=== PATIENT | female | born 1980 | race Caucasian/White ===

== ENCOUNTER 2021-01-07 14:40 | Outpatient (REF) | payer BC, SELFPAY ==
[2021-01-13 13:31] LABS: HPV mRNA E6/E7 rflx Not Detected (Not Detected)
== END 2021-01-07 14:41 | disposition home or self-care (01) ==
LOC: HO.LAB 14:40
PROVIDERS: PCP Internal Medicine; Visit Provider Advanced Practice Midwife
DX: Z01.411 Encounter for gynecological examination (general) (routine) with abnormal findings (principal); Z11.51 Encounter for screening for human papillomavirus (HPV); T83.32XA Displacement of intrauterine contraceptive device, initial encounter; N88.9 Noninflammatory disorder of cervix uteri, unspecified
CPT/HCPCS: 36415; 87624; 88141; 88142

== ENCOUNTER 2021-01-14 15:56 | Outpatient (REF) | payer BC, SELFPAY ==
--- NOTE | ~2021-01-14 | US_ITS ---
EXAMINATION: US PELVIS ULTRASOUND CLINICAL INFORMATION: T83.32XA - Displacement of intrauterine contraceptive device, initial encounter. Age 40. Spotting a few weeks ago. COMPARISON: Ultrasound pelvis 08/14/2018 TECHNIQUE: Ultrasound of the pelvis is performed using both transabdominal and transvaginal transducers along with Doppler. Transvaginal imaging is performed due to inadequate visualization transabdominally. FINDINGS: Uterus: The uterus is anteverted and slightly retroflexed and measures 8.5 x 4.0 x 4.0 cm. Volume 71 mL. The there is an IUD in the uterine cavity in expected position. No endometrial thickening. Endometrial double wall thickness under 6 mm. No fluid in the uterine cavity. The uterus is smooth in contour and has normal myometrial echogenicity. No visible fibroid. Adnexa: Both ovaries are visualized. There is normal color flow to the adnexa. There is no ovarian torsion. There is no pelvic ascites or fluid collection. Right ovary measures 2.3 x 1.9 x 1.9 cm. There is postovulatory corpus luteum measuring 1.6 x 1.2 x 1.5 cm. Left ovary measures 3.7 x 1.6 x 2.7 cm. There is dominant follicle measuring 2.2 x 1.4 x 2.1 cm. US/US pelvic complete IMPRESSION: 1. Uterus: IUD in expected position. 2. Adnexa: Incidental dominant follicle on left 2.2 cm. No ascites.
--- NOTE | ~2021-01-14 | US_ITS ---
EXAMINATION: US PELVIS ULTRASOUND CLINICAL INFORMATION: T83.32XA - Displacement of intrauterine contraceptive device, initial encounter. Age 40. Spotting a few weeks ago. COMPARISON: Ultrasound pelvis 08/14/2018 TECHNIQUE: Ultrasound of the pelvis is performed using both transabdominal and transvaginal transducers along with Doppler. Transvaginal imaging is performed due to inadequate visualization transabdominally. FINDINGS: Uterus: The uterus is anteverted and slightly retroflexed and measures 8.5 x 4.0 x 4.0 cm. Volume 71 mL. The there is an IUD in the uterine cavity in expected position. No endometrial thickening. Endometrial double wall thickness under 6 mm. No fluid in the uterine cavity. The uterus is smooth in contour and has normal myometrial echogenicity. No visible fibroid. Adnexa: Both ovaries are visualized. There is normal color flow to the adnexa. There is no ovarian torsion. There is no pelvic ascites or fluid collection. Right ovary measures 2.3 x 1.9 x 1.9 cm. There is postovulatory corpus luteum measuring 1.6 x 1.2 x 1.5 cm. Left ovary measures 3.7 x 1.6 x 2.7 cm. There is dominant follicle measuring 2.2 x 1.4 x 2.1 cm. US/US transvaginal IMPRESSION: 1. Uterus: IUD in expected position. 2. Adnexa: Incidental dominant follicle on left 2.2 cm. No ascites.
== END 2021-01-14 15:57 | disposition home or self-care (01) ==
LOC: HO.US 15:56
PROVIDERS: PCP Internal Medicine; Visit Provider Advanced Practice Midwife
DX: T83.32XA Displacement of intrauterine contraceptive device, initial encounter (principal)
CPT/HCPCS: 76830; 76856

== ENCOUNTER → 2021-02-04 14:02 | Outpatient (BNVA) | payer BC, SELFPAY | PROVIDERS: PCP Internal Medicine; Visit Provider Obstetrics & Gynecology ==

== ENCOUNTER → 2021-12-14 09:00 | Outpatient (BNVA) | payer BC, SELFPAY | PROVIDERS: Visit Provider Obstetrics & Gynecology ==

== ENCOUNTER 2022-01-18 15:52 | Outpatient (REF) | payer OTHER, SELFPAY ==
--- NOTE | ~2022-01-18 | MM_ITS ---
EXAMINATION: MM SCREENING DIGITAL BREAST TOMOSYNTHESIS, BILATERAL CLINICAL INFORMATION: Screening. Asymptomatic. No prior mammography. Age 41. No known family history breast cancer. The lifetime risk of breast cancer based on the Tyrer-Cuzick Model is 10%. COMPARISON: None (current study represents initial baseline exam). TECHNIQUE: Digital breast tomosynthesis is performed in both the craniocaudal and mediolateral oblique views along with computer-aided detection (CAD). Synthesized 2D images are generated from the tomosynthesis. FINDINGS: The breasts are heterogeneously dense, which may obscure small masses (ACR BI-RADS breast composition Category c). There are no significant masses, abnormal calcifications, or other abnormalities. No architectural abnormality. The skin contours are smooth. MM/MM tomosynthesis screening BI IMPRESSION: No mammographic evidence of malignancy. ASSESSMENT: BI-RADS 1: Negative RECOMMENDATION: Routine annual mammography screening. This patient's information was entered into a reminder system with a target due date for their next mammogram.
== END 2022-01-18 15:53 | disposition home or self-care (01) ==
LOC: HO.MAMMO 15:52
PROVIDERS: PCP Internal Medicine; Visit Provider Obstetrics & Gynecology
DX: Z12.31 Encounter for screening mammogram for malignant neoplasm of breast (principal)
CPT/HCPCS: 77063; 77067

== ENCOUNTER 2022-02-08 14:55 | Outpatient (REF) | payer OTHER, SELFPAY ==
[2022-02-09 04:40] LABS: CT PCR NOT DETECTED (Not Detect.); NG PCR NOT DETECTED (Not Detect.)
== END 2022-02-08 14:56 | disposition home or self-care (01) ==
LOC: HO.LAB 14:55
PROVIDERS: PCP Internal Medicine; Visit Provider Obstetrics & Gynecology
DX: Z30.433 Encounter for removal and reinsertion of intrauterine contraceptive device (principal)
CPT/HCPCS: 58300; 58301; 87491; 87591

== ENCOUNTER 2022-06-08 08:21 | Outpatient (REF) | payer OTHER, SELFPAY ==
[2022-06-12 12:42] LABS: HPV mRNA E6/E7 rflx Not Detected (Not Detected)
== END 2022-06-08 08:22 | disposition home or self-care (01) ==
LOC: HO.LAB 08:21
PROVIDERS: Visit Provider Obstetrics & Gynecology
DX: Z01.419 Encounter for gynecological examination (general) (routine) without abnormal findings (principal); Z11.51 Encounter for screening for human papillomavirus (HPV)
CPT/HCPCS: 81025; 87624; 88142

== ENCOUNTER 2023-02-04 09:02 | Outpatient (REF) | payer OTHER, SELFPAY ==
--- NOTE | ~2023-02-04 | MM_ITS ---
EXAMINATION: MM SCREENING DIGITAL BREAST TOMOSYNTHESIS, BILATERAL CLINICAL INFORMATION: Screening. Asymptomatic. The lifetime risk of breast cancer based on the Tyrer-Cuzick Model is 11%. COMPARISON: Mammography: 01/18/2022 (baseline) TECHNIQUE: Digital breast tomosynthesis is performed in both the craniocaudal and mediolateral oblique views along with computer-aided detection (CAD). Synthesized 2D images are generated from the tomosynthesis. FINDINGS: The breasts are heterogeneously dense, which may obscure small masses (ACR BI-RADS breast composition Category c). There are no significant masses, abnormal calcifications, or other abnormalities. Parenchymal pattern is similar to prior baseline exam. There is no developing density or architectural abnormality. The axilla and skin contours are unremarkable. No significant changes. MM/MM tomosynthesis screening BI IMPRESSION: No significant changes from prior baseline exam. ASSESSMENT: BI-RADS 1: Negative RECOMMENDATION: Routine annual mammography screening. This patient's information was entered into a reminder system with a target due date for their next mammogram.
== END 2023-02-04 09:03 | disposition home or self-care (01) ==
LOC: HO.MAMMO 09:02
PROVIDERS: PCP Internal Medicine; Visit Provider Internal Medicine
DX: Z12.31 Encounter for screening mammogram for malignant neoplasm of breast (principal)
CPT/HCPCS: 77063; 77067

== ENCOUNTER 2023-07-26 09:42 | Outpatient (REF) | payer OTHER, SELFPAY ==
[2023-07-26 15:15] LABS: CT PCR NOT DETECTED (Not Detect.); NG PCR NOT DETECTED (Not Detect.)
== END 2023-07-26 09:43 | disposition home or self-care (01) ==
LOC: HO.LNP 09:42
PROVIDERS: Visit Provider Obstetrics & Gynecology
DX: Z20.2 Contact with and (suspected) exposure to infections with a predominantly sexual mode of transmission (principal)
CPT/HCPCS: 0353U

== ENCOUNTER 2023-07-26 09:42 | Outpatient (AMB) | payer OTHER, SELFPAY ==
[2023-07-26 09:47] VITALS: BP 122/72; BMI 25.4
--- NOTE | 2023-07-26 09:47 | A.OFFVIS_ITS ---
Intake Vital Signs 07/26/23 09:47 Height 5 ft 7 in Weight 162 lb BMI 25.4 BP 122/72 Intake Visit Reasons: COOK 3 PASTRY annual exam/DO NOT RS Hospice Care Transitions Coordinator Required: No Information Interpreted: non-clinical & clinical Entry Clerk: Entry Clerk Present (Marian) Allergies kiwi [Kiwi (Actinidia Chinensis)] Allergy (Unknown, Verified 07/26/23 09:50) UNKNOWN SEASONAL ALLERGIES Allergy (Mild, Uncoded 07/26/23 09:50) SNEEZE, RUNNY NOSE Is last menstrual period known: No (Mirena) Post menopausal: No HPI HPI Comments History of Present Illness Details Presenting for annual exam. Complaining of irregular menstrual cycles on Mirena IUD. Last Pap/HPV was negative 06/11 Last Mammogram was BI-RADS 1 in 02/10 [facility] Medical History Asthma CARLOS III (cervical intraepithelial neoplasia III) Migraine Obesity (BMI 30-39.9) Pure hypercholesterolemia Vitamin D deficiency Surgical History H/O LEEP History of tonsillectomy and adenoidectomy Family History Father Hypertension Asthma Mother Hypertension Maternal Grandmother No problems noted. 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 Cognitive needs: No Hearing needs: No Vision needs: No Female Reproductive History Menstrual Age of Menarche: 11 control method: progestin IUCD Total pregnancies: 4 Full term: 2 Number of Living Children: 2 Ab induced: 2 Date of last pap smear: 06/09/22 History of abnormal pap smear: Yes Date of Mammogram: 02/04/23 Review of Systems Const All systems reviewed & are unremarkable except as noted in HPI and below Card Reports as per HPI Resp Reports as per HPI GI Reports as per HPI and Reports no additional complaints Reports as per HPI Physical Exam Const General: cooperative, healthy appearing and comfortable Chest Chest palpation & inspection: normal inspection of the chest and normal palpation of entire chest wall Breast/axilla inspection: normal inspection of the breasts and normal inspection of the axillae Breast/axilla palpation: normal palpation of the breasts, normal palpation of the axillae and no axillary lymphadenopathy Resp Effort & Inspection: normal respiratory effort Auscultation: clear to auscultation bilaterally Percussion: percussion normal Cardio Palpation: normal PMI Rate: regular rate Rhythm: regular rhythm Heart sounds: no murmurs and no rubs Peripheral pulses: Peripheral pulses 2+ throughout GI Inspection: Yes normal to inspection Palpation (GI): Soft to palpation, nontender, no guarding, not rigid and No hepatosplenomegaly present Percussion: Yes normal to percussion Auscultation: normal bowel sounds Rectal Exam - Female: deferred General: Yes bladder normal to palpation External Female Exam: No lesion Speculum Exam - Vagina: normal appearance of the vagina, normal palpation, normal vaginal discharge and not erythematous Speculum Exam - Cervix: normal appearance of the cervix, normal palpation and Other cervical findings present (IUD thread in place) Bimanual exam- vagina & uterus: normal bimanual exam, normal palpation, uterine size normal, bladder normal to palpation, consistency normal and normal palpation Bimanual Exam- Adnexa, other: normal adnexae, no masses and no tenderness Assessment & Plan Assessment & Plan (1) Well woman exam: Code(s): Z01.419 - Encounter for gynecological examination (general) (routine) without abnormal findings Plan: Cotesting not indicated this year. Instruction given to the patient to schedule next screening Mammogram in 02/11. Counseled the patient about the recommended dietary allowance of 1000 mg of Calcium & 600 IU of vitamin D. The patient was instructed to perform monthly self-breast exams and to schedule an annual exam in a year; All questions answered and the patient verbalized understanding. Instructed the patient to schedule annual exam in a year (2) Abnormal uterine bleeding (AUB): Comment: On Mirena IUD Code(s): N93.9 - Abnormal uterine and vaginal bleeding, unspecified Plan: Co testing not indicated this year, GC and chlamydia taken CBC, TSH, HCG, and pelvic ultrasound ordered. Discussed with the patient the different causes of abnormal bleeding including thyroid disorders, uterine and ovarian pathology, endometrial hyperplasia, carcinoma and other potential causes. Discussed with the patient the work up including CBC (to r/o anemia), TSH, pelvic Ultrasound, endometrial biopsy to r/o endometrial pathology. All questions answered and the patient verbalized understanding. Instructed the patient to schedule an appointment for an endometrial biopsy in 2 weeks. Orders: Orders HCG Quantitative Today N93.9 - Abnormal uterine and vaginal bleeding, unspecified Prolactin Today N93.9 - Abnormal uterine and vaginal bleeding, unspecified TSH reflex Free T4 Today N93.9 - Abnormal uterine and vaginal bleeding, unspecified Complete Blood Count no Diff Today N93.9 - Abnormal uterine and vaginal bleeding, unspecified US pelvic and transvaginal Today N93.9 - Abnormal uterine and vaginal bleeding, unspecified Coding Level of Care Code Est Pt Prev Care 40-64y(42196) Diagnoses Well woman exam Z01.419 Abnormal uterine bleeding (AUB) N93.9
== END 2023-07-26 10:12 | disposition home or self-care (01) ==
PROVIDERS: Visit Provider Obstetrics & Gynecology
DX: Z01.419 Encounter for gynecological examination (general) (routine) without abnormal findings (principal); N93.9 Abnormal uterine and vaginal bleeding, unspecified
CPT/HCPCS: 99396

== ENCOUNTER 2023-08-23 11:36 | Outpatient (REF) | payer OTHER, SELFPAY ==
[2023-08-23 12:49] LABS: Hematocrit 42.6 % (37.0-47.0); Hemoglobin 14.4 g/dl (12.0-16.0); Mean Corpuscular HGB Conc 33.8 g/dl (31.0-35.0); Mean Corpuscular Hemoglobin 32.5 pg (27.0-33.0); Mean Corpuscular Volume 96.2 fL (80.0-98.0); Mean Platelet Volume 8.7 fL (9.4-12.3); Platelet Count 305 X10*3/uL (160-400); Red Blood Count 4.43 X10*6/uL (4.20-5.50); Red Cell Distribution Width 11.8 % (11.0-16.0); White Blood Count 6.1 X10*3/uL (4.8-10.8)
[2023-08-23 13:41] LABS: HCG Quantitative < 2 mIU/mL; TSH reflex Free T4 1.57 uIU/mL (0.32-4.0)
[2023-08-25 02:19] LABS: Prolactin 8.4 ng/mL
== END 2023-08-23 11:37 | disposition home or self-care (01) ==
LOC: HO.US 11:36
PROVIDERS: PCP Internal Medicine; Visit Provider Obstetrics & Gynecology
DX: N93.9 Abnormal uterine and vaginal bleeding, unspecified (principal)
CPT/HCPCS: 36415; 76830; 76856; 84146; 84443; 84702; 85027

== ENCOUNTER 2023-09-07 11:05 | Outpatient (REF) | payer OTHER, SELFPAY | END 2023-09-07 11:06 | disposition home or self-care (01) | LOC: HO.LNP 11:05 | PROVIDERS: PCP Internal Medicine; Visit Provider Obstetrics & Gynecology | DX: N93.9 Abnormal uterine and vaginal bleeding, unspecified (principal) | CPT/HCPCS: 58100; 81025; 88305 ==

== ENCOUNTER 2023-09-07 11:05 | Outpatient (AMB) | payer OTHER, SELFPAY ==
--- NOTE | 2023-09-07 11:10 | MHC.OFFVIS ---
Intake Vital Signs 09/07/23 11:17 Height 5 ft 7 in Weight 116 lb 13.52 oz BMI 18.3 BP 110/68 Intake Visit Reasons: EMB/Ultrasound follow up Boat Worker Required: No Information Interpreted: non-clinical & clinical Environmental Officer: Environmental Officer Present Accompanied by: Self / Same As Patient Allergies kiwi [Kiwi (Actinidia Chinensis)] Allergy (Unknown, Verified 09/07/23 11:17) UNKNOWN SEASONAL ALLERGIES Allergy (Mild, Uncoded 09/07/23 11:17) SNEEZE, RUNNY NOSE PFSH Medical History Asthma CARLOS III (cervical intraepithelial neoplasia III) Migraine Obesity (BMI 30-39.9) Pure hypercholesterolemia Vitamin D deficiency Surgical History H/O LEEP History of tonsillectomy and adenoidectomy Family History Father Hypertension Asthma Mother Hypertension Maternal Grandmother No problems noted. 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 hysteroscopy D&C) & the risks were discussed with the patient including but not limited: pain, uterine perforation, bleeding, infection, possible injury to bladder, bowel, ureter, possible need for blood transfusion with all its possible risks. The patient verbalized understanding all questions answered and signed consent. UPT done in the office was negative The patient was placed into the dorsal lithotomy position; a speculum was inserted in the vagina. Using aseptic technique for the procedure, the cervix was cleansed with Betadine. The anterior lip of the cervix was grasped with a single tooth tenaculum. The uterus was sounded to 7 cm with a 4 mm Pipelle was used. Tissues samples were obtained and placed in formalin, in a patient labeled container and sent to the pathology department. At the end of the procedure, there was minimal bleeding noted The patient tolerated the procedure well and was discharged in good condition with the following instructions: Nothing in the vagina until the bleeding stops. No sex until the bleeding stops, to call if any of the following occurs: fever (>100.4), flu-like symptoms, abdominal pain, heavy bleeding, four smelling vaginal discharge. The patient was instructed to schedule a Follow up appointment in 2 weeks to discuss pathology results of the biopsy and treatment options. This note was generated with a voice recognition program. Some errors may have been overlooked during the review of this note. Sometimes these errors may affect the content or meaning of a given sentence. [id number] Biopsy Results AMB Test Urine AMB Test Urine Negative Last Edit by Marian Garcia CMA on 09/07/23 11:19 Assessment & Plan Assessment & Plan (1) Abnormal uterine bleeding (AUB): Comment: On Mirena IUD Code(s): N93.9 - Abnormal uterine and vaginal bleeding, unspecified Orders: Orders AMB HCG Urine Test Today Z32.02 - Encounter for test, result negative AMB Endometrial Biopsy Today N93.9 - Abnormal uterine and vaginal bleeding, unspecified Coding Level of Care Code Procedure Only Diagnoses Abnormal uterine bleeding (AUB) N93.9 CPT Codes Endometrial Biopsy - CPT: 87057-[id number] Biopsy ([id number])
[2023-09-07 11:17] VITALS: BP 110/68; BMI 18.3
== END 2023-09-07 11:28 | disposition home or self-care (01) ==
LOC: HO.HWS 11:06
PROVIDERS: PCP Internal Medicine; Visit Provider Obstetrics & Gynecology
DX: N93.9 Abnormal uterine and vaginal bleeding, unspecified (principal); Z32.02 Encounter for pregnancy test, result negative
CPT/HCPCS: 58100

== ENCOUNTER 2023-11-03 09:18 | Outpatient (AMB) | payer OTHER, SELFPAY ==
--- NOTE | 2023-11-03 09:23 | MHC.PC.OV ---
Vital Signs 11/03/23 09:25 Height 5 ft 7 in Weight 165 lb 6 oz BMI 25.9 BP 120/70 Blood Pressure Location Lt brachial Position Sitting Pulse 70 Pulse Source Pulse Oximeter Pulse Oximetry (%) 98 Oxygen Delivery Method Room Air Intake Visit Reasons: Med review Intake Note: Patient is here to follow up on med review. Product Development Manager Required: No Buggy Ladle Tender: Not Required per policy Accompanied by: Self / Same As Patient Allergies kiwi [Kiwi (Actinidia Chinensis)] Allergy (Unknown, Verified 11/03/23 09:25) UNKNOWN SEASONAL ALLERGIES Allergy (Mild, Uncoded 11/03/23 09:25) SNEEZE, RUNNY NOSE Tobacco use date assessed: 11/03/23 Dental Screening Dental Screen Date: 11/03/23 Did you have a dental visit in the last 12 months?: No Did you have a dental problem in the last 6 months where you did not have access to dental care?: No Was dental information given to patient?: No HPI HPI Comments History of Present Illness Details 33-year-old female past medical history significant for asthma, migraines, vitamin-D deficiency, hypercholesteremia and obesity. Patient of Dr. Martinez last seen in June 2022, patient presents today for medication review. Patient requesting refill on her albuterol inhaler. Patient reports given the weather change and from going from hot to cold she does have to use her inhaler once a day and reports due to her forced hot air in her house that occasionally she is waking up at night to use at. Patient advised to use cool mist humidifier to add moisture to the air. Patient requesting prescription for Zyrtec, Rx sent to patient's pharmacy [facility] Medical History Asthma CARLOS III (cervical intraepithelial neoplasia III) Migraine Obesity (BMI 30-39.9) Pure hypercholesterolemia Vitamin D deficiency Surgical History H/O LEEP History of tonsillectomy and adenoidectomy Family History Father Hypertension Asthma Mother Hypertension Maternal Grandmother No problems noted. 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 1. Little interest or pleasure in doing things: not at all 2. Feeling down, depressed, or hopeless: not at all 3. Trouble falling or staying asleep, or sleeping too much: not at all 4. Feeling tired or having little energy: not at all 5. Poor appetite or overeating: not at all 6. Feeling bad about yourself - or that you are a failure or have let yourself or your family down: not at all 7. Trouble concentrating on things, such as reading the newspaper or watching television: not at all 8. Moving or speaking so slowly that other people could have noticed. Or the opposite - being so fidgety or restless that you have been moving around a lot more than usual: not at all 9. Thoughts that you would be better off or of hurting yourself in some way: not at all Total score: 0 Depression Screening Interpretation: Negative Depression Screening Done: Yes Source: Developed by Drs. Randolph Gamino, Lisy Banks, Kenny Palacio and colleagues, with an educational milady from [employer]. Thrive Questionnaire Date Thrive assessed: 11/03/23 I am a: Patient What is your living situation today?: I have a steady place to live Within the past 12 months, did the food you bought not last and you didn't have the money to get more?: Never true Within the past 12 months, did you worry whether your food would run out before you got money to buy more?: Never true Do you have trouble paying for medicines?: No Do you have trouble getting transportation to medical appointments?: No Do you have trouble paying your heating and electricity bill?: No Do you have trouble taking care of your child, family member or friend?: No Do you have trouble with day-to-day activities such as bathing, preparing meals, shopping, managing finances, etc.?: No Are you currently unemployed and looking for a job?: No Are you interested in more education?: No Currently or been in a relationship where the following occur: no concerns reported AUDIT C Alcohol Use Questionnaire (AUDIT-C) 1. How often do you have a drink containing alcohol?: Monthly or less 2. How many drinks containing alcohol do you have on a typical day when you are drinking?: 1 or 2 Total Score: 1 TURNER-7 AMB Questionnaire TURNER-7 Date TURNER - 7 assessed: 11/03/23 Feeling nervous, anxious, or on edge: 0 = Not at all Not being able to stop or control worryin = Not at all Worrying too much about different things: 0 = Not at all Trouble relaxin = Not at all Being so restless that it is hard to sit still: 0 = Not at all Becoming easily annoyed or irritable: 0 = Not at all Feeling afraid as if something awful might happen: 0 = Not at all Total TURNER-7 score (0-4 normal; 5-9 mild; 10-14 moderate; 15-21 severe): 0 Source: Developed by Drs. Randolph Gamino, Lisy Banks, Kenny Palacio and colleagues, with an educational milady from [employer]. Review of Systems Const Denies chills, Denies fatigue, Denies fever(s) and Denies poor appetite Eyes Denies no additional complaints ENT Reports Normal hearing present Card Denies chest pain, Denies syncope, Denies rapid heart rate and Denies dyspnea Resp Denies cough and Denies dyspnea GI Denies change in stool character, Denies constipation, Denies diarrhea, Denies nausea and Denies vomiting Denies urinary frequency, Denies dysuria and Denies urinary urgency Neuro Reports Normal hearing present, Denies confusion and Denies syncope Psych Denies confusion Endo Denies fatigue Physical exam (Primary Care) Vital Signs: Last Vital Signs Pulse 70 11/03/23 09:25 BP 120/70 11/03/23 09:25 Pulse Ox 98 11/03/23 09:25 Oxygen Delivery Method Room Air 11/03/23 09:25 BMI result Body Mass Index 25.9 Tobacco/Smoking Status: Tobacco use Status Tobacco use date assessed 11/03/23 11/03/23 09:29 Patient Tobacco Use Status Former Tobacco user 11/03/23 09:29 Tobacco use type Cigarette 11/03/23 09:29 e-Cigarette/Vaping Use Never Used 11/03/23 09:29 PHQ-9: PHQ-9 Score PHQ-9: Total score 0 11/03/23 09:32 Depression Screening Interpretation: Negative Thrive Assessment: Date of Thrive Assessment Date Thrive assessed 11/03/23 11/03/23 09:29 Currently or been in a relationship where the following occur: no concerns reported Const General: No confusion Orientation/consciousness: No confusion HENMT Head: Yes normocephalic and Yes atraumatic Eyes Conjunctivae: conjunctivae normal Chest Chest palpation & inspection: normal inspection of the chest Resp Effort & Inspection: normal respiratory effort Auscultation: clear to auscultation bilaterally, no crackles, no rhonchi and no wheezes Cardio Rate: regular rate Rhythm: regular rhythm Heart sounds: S1 normal heart sound present and S2 normal heart sound present GI Inspection: Yes normal to inspection Neuro General: No confusion Cranial nerves: Yes Normal hearing present Extrem General: No edema Assessment and Plan Assessment & Plan (1) Asthma: Code(s): J45.909 - Unspecified asthma, uncomplicated Plan: Albuterol inhaler refill sent. (2) Seasonal allergies: Code(s): J30.2 - Other seasonal allergic rhinitis Plan: Zyrtec sent to patient's pharmacy. Plan Follow-up in 3 months for complete physical exam. Medications: New cetirizine (Zyrtec) 10 mg PO DAILY 90 caps 0RF Refilled albuterol sulfate 90 mcg/actuation (ProAir HFA) 2 puffs inhalation Q6H PRN 18 grams 5RF shortness of breath or wheezing 30 days J45.909 - Unspecified asthma, uncomplicated Coding Level of Care Code Est Pt Level 3 (58152) Diagnoses Asthma J45.909 Seasonal allergies J30.2
[2023-11-03 09:25] VITALS: BP 120/70; PULSE 70; O2SAT 98; BMI 25.9
== END 2023-11-03 09:39 | disposition home or self-care (01) ==
PROVIDERS: PCP Internal Medicine; Visit Provider Nurse Practitioner Family
DX: J30.2 Other seasonal allergic rhinitis (principal)
CPT/HCPCS: 99213

== ENCOUNTER 2024-01-15 19:07 | Emergency (ER) | payer OTHER, SELFPAY ==
--- NOTE | ~2024-01-15 | US_ITS ---
EXAMINATION: US PELVIS with ovarian Doppler. CLINICAL INFORMATION: Pain. COMPARISON: CT from the same day. TECHNIQUE: Ultrasound of the pelvis is performed using both transabdominal and transvaginal transducers along with Doppler. Transvaginal imaging is performed due to inadequate visualization transabdominally. Color and spectral Doppler assessment of the bilateral ovaries was performed. FINDINGS: Uterus: The uterus is anteverted and measures 8.7 x 4.2 x 5.6 cm. Endometrial thickness is 0.5 cm, within normal limits. IUD is noted within the endometrial canal. The uterus is smooth in contour and has normal myometrial echogenicity. No visible fibroid. Nabothian cysts are seen at the cervix. Adnexa: Both ovaries are visualized. There is normal color flow to the adnexa. There is no evidence of ovarian torsion on spectral and color Doppler. Arterial and venous waveforms are noted. Right ovary measures 3.2 x 1.5 x 1.6 cm cm. No cysts or lesions. Left ovary measures 5.0 x 1.9 x 4.1 cm. There is an associated 3.2 x 1.9 x 3.7 cm simple left ovarian cyst, likely a follicular cyst. No suspicious features. Trace free fluid in the pelvis. US/US pelvic and transvaginal IMPRESSION: 1. No acute intrapelvic abnormalities. No evidence of ovarian torsion. 2. IUD in place. 3. A 3.7 cm simple left ovarian cyst, likely a follicular cyst. No recommended imaging follow-up.
--- NOTE | ~2024-01-15 | CT_ITS ---
EXAMINATION: CT ABDOMEN AND PELVIS WITH CONTRAST CLINICAL INFORMATION: Diffuse abdominal pain. COMPARISON: Ultrasound dated 01/14/2021 and 08/23/2023 TECHNIQUE: Multidetector volumetric images were obtained from the superior aspect of the liver through the pubic symphysis following administration 85 mL of Omnipaque 350 intravenous contrast. Sagittal and coronal reformatted images were obtained on the technologist's workstation. Oral contrast: No This CT examination was performed using dose optimization techniques as appropriate, variously including the following: *Automated exposure control *Adjustment of mA and/or kV according to patient size (this includes techniques or standardized protocols for targeted exams where dose is matched to indication/reason for exam; i.e. extremities or head) *Use of iterative reconstruction technique DLP: 539 mGy-cm FINDINGS: LUNG BASES: The visualized lung bases are unremarkable. LIVER, GALLBLADDER, AND BILIARY TREE: The liver is borderline enlarged, measuring 21 cm craniocaudal. The liver is normal in shape and attenuation. No suspicious hepatic lesion or biliary ductal dilatation is present. Small subcentimeter focus of hypoattenuation within hepatic segment 6 is too small to characterize. No recommend imaging follow-up. No suspicious hepatic lesions. The gallbladder is unremarkable with no evidence of radiopaque gallstones, gallbladder wall thickening, or obvious pericholecystic inflammatory changes. PANCREAS: Unremarkable. SPLEEN: Unremarkable. ADRENAL GLANDS: Unremarkable. KIDNEYS AND URETERS: The kidneys are normal in size, shape, and attenuation. No hydronephrosis, hydroureter, or calculi seen. No perinephric stranding. BLADDER: Unremarkable. GASTROINTESTINAL TRACT: Stomach, small bowel, and colon are normal in caliber without bowel wall thickening. No peritoneal free fluid or free air. Appendix is normal. ABDOMINAL WALL: No significant hernia is appreciated. LYMPH NODES: Normal. VASCULAR: Unremarkable. PELVIC VISCERA: IUD is appropriately situated in the retroverted uterus. Left ovarian cysts are again noted, better seen on prior ultrasound from August 2023, measuring up to 3.8 cm in greatest diameter in aggregate. The are almost certainly benign. No imaging follow-up. OSSEOUS STRUCTURES: Unremarkable. CT/CT abdomen pelvis w IV con IMPRESSION: 1. No acute intra-abdominal or intrapelvic abnormalities. 2. Borderline hepatomegaly. Fleischner guidelines were followed.
[2024-01-15 19:14] VITALS: BP 120/56; PULSE 97; RESP 16; TEMP 36.4; O2SAT 98; BMI 26.3
[2024-01-15 19:32] VITALS: BP 127/63; PULSE 94; RESP 18; TEMP 36.7; O2SAT 97
[2024-01-15] MEDS: 0.9 % Sodium Chloride 1,000 ML 999 ML IV (19:40)
[2024-01-15] MEDS: ondansetron HCL 4 MG/2 ML VIAL IVPUSH (19:43)
[2024-01-15] MEDS: Ketorolac Tromethamine 15 MG/ML VIAL IVPUSH ×2 (19:43→22:46)
--- NOTE | 2024-01-15 19:50 | PC.NURSE ---
IV # 20 L-AC placed, blood drawn and sent to lab. Pt reporting nausea and pain 10/10 to lower back and abdomen. Medications given as ordered, IV fluids running at this time. Plan of care ongoing.
[2024-01-15 19:51] LABS: Hematocrit 42.8 % (37.0-47.0); Hemoglobin 14.8 g/dl (12.0-16.0); Mean Corpuscular HGB Conc 34.6 g/dl (31.0-35.0); Mean Corpuscular Hemoglobin 31.9 pg (27.0-33.0); Mean Corpuscular Volume 92.2 fL (80.0-98.0); Mean Platelet Volume 8.5 fL (9.4-12.3); Platelet Count 286 X10*3/uL (160-400); Red Blood Count 4.64 X10*6/uL (4.20-5.50); Red Cell Distribution Width 11.9 % (11.0-16.0); White Blood Count 8.7 X10*3/uL (4.8-10.8)
--- NOTE | 2024-01-15 20:00 | ED.FEMALEGU ---
HPI - Female Genitourinary General Chief complaint: Urogenital-Female Stated complaint: abd/back pain sent from urgent care Time Seen by Provider: 01/15/24 19:24 Source: patient, RN notes reviewed and old records reviewed Mode of arrival: ambulatory Limitations: no limitations History of Present Illness HPI Narrative: 43-year-old female who denies any past medical history presents for evaluation abdominal pain and back pain. Patient reports he had crampy back pain and abdominal pain for about 1 week. Over the last 48 hours she has had more severe pain as well as subjective fevers. She went to urgent care and was told to come to the ER. She reports that they did a urine sample and a KUB which did not show any sign of obstruction. Patient denies any history abdominal surgeries. Patient endorses nausea with no vomiting Related Data Home Medications Medication Instructions Recorded Confirmed levonorgestrel 21 mcg/24 hours (8 intrauterine 02/04/21 07/20/22 yrs) 52 mg intrauterine device (Mirena) Previous Rx's Medication Instructions Recorded albuterol sulfate 90 mcg/actuation 2 puff inhalation Q6H PRN 11/03/23 aerosol inhaler (ProAir HFA) shortness of breath or wheezing 30 days #18 grams cetirizine 10 mg capsule (Zyrtec) 10 mg PO DAILY #90 caps 11/03/23 Allergies Allergy/AdvReac Type Severity Reaction Status Date / Time kiwi Allergy Unknown UNKNOWN Verified 11/03/23 09:25 [Kiwi (Actinidia Chinensis)] SEASONAL ALLERGIES Allergy Mild SNEEZE, Uncoded 11/03/23 09:25 RUNNY NOSE Review of Systems Constitutional: Constitutional: Denies body ache(s), Reports chills and Reports fever(s) ENT: Denies sore throat Cardiovascular: Cardiovascular: Denies chest pain and Denies dyspnea Respiratory: Respiratory: Denies cough and Denies dyspnea Gastrointestinal: Gastrointestinal: Reports abdominal pain, Reports nausea and Denies vomiting Genitourinary: Genitourinary: Denies pelvic pain Musculoskeletal: Musculoskeletal: Reports back pain Integumentary/Breasts: Skin/Breast: Denies rash PMFSH Past Medical History Medical History Asthma CARLOS III (cervical intraepithelial neoplasia III) Migraine Obesity (BMI 30-39.9) Pure hypercholesterolemia Vitamin D deficiency Surgical History H/O LEEP History of tonsillectomy and adenoidectomy Family History Family History Father Hypertension Asthma Mother Hypertension Maternal Grandmother No problems noted. 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 Cognitive needs: No Hearing needs: No Vision needs: Yes (glasses) Physical Exam Vital Signs: Vital Signs: Last Vital Signs Temp 99.6 F 01/15/24 23:55 Pulse 92 01/15/24 23:55 Resp 16 01/15/24 23:55 BP 115/61 01/15/24 23:55 Pulse Ox 94 01/15/24 23:55 O2 Del Method Room Air 01/15/24 23:55 BMI result Body Mass Index 26.3 Const: General: healthy appearing, comfortable, no acute distress, alert and awake Nutritional Appearance: well nourished Orientation/consciousness: patient oriented x3 HEENT: Head: Yes normocephalic and Yes atraumatic Eyes: Eyelids: Yes eyelids normal Conjunctivae: conjunctivae normal Sclerae: sclerae normal Corneas: corneas normal Pupils: Equal, round and reactive pupils present EOM: EOMs intact bilaterally Neck: Neck: Yes full ROM Resp: Effort & Inspection: normal respiratory effort, able to speak in complete sentences and not labored GI: Other: Diffuse abdominal tenderness, there appears to be more focal tenderness in the right lower quadrant with guarding. There is rebound tenderness as well Inspection: No distended Palpation (GI): Soft to palpation, not firm and not rigid Skin: General skin exam: elasticity normal Neuro: General: patient oriented x3 Cranial nerves: Yes Equal, round and reactive pupils present and Yes Bilaterally intact EOM present Cognition (Neuro): normal cognition Course Reevaluation(s) Reevaluation #1: Patient's CT scan shows no concerning findings. However she does have a bandemia with a left shift, unclear source. Plan for pelvic ultrasound and repeat labs. She has no reason to have bacteremia however blood cultures will be drawn to further rule out any further cause of her bandemia Time: 22:46 Reevaluation #2: Patient's ultrasound shows concern for ruptured ovarian cyst. UA does not appear indicative of urinary infection. The bandemia may have been reactive to the ruptured cyst. The patient is stable for discharge where her vital signs have remained stable throughout her stay. All of her workup was discussed with her Time: 00:07 Medications Administered Discontinued Medications Generic Name Dose Route Start Last Admin Trade Name Freq PRN Reason Stop Dose Admin Sodium Chloride 1,000 mls @ 999 mls/hr 01/15/24 19:30 01/15/24 20:41 Ns IV 01/15/24 20:30 Infused .Q1H1M BRENDAN Infusion Iohexol 100 ml 01/15/24 20:28 01/15/24 20:34 Iohexol 350 Mg/Ml 100 Ml Infus..Btl IV 01/15/24 20:29 85 ml ONCE ONE Administration Ketorolac Tromethamine 15 mg 01/15/24 19:30 01/15/24 19:43 Ketorolac Tromethamine 15 Mg/Ml Vial IVPUSH 01/15/24 19:31 15 mg ONCE ONE Administration Ketorolac Tromethamine 15 mg 01/15/24 22:42 01/15/24 22:46 Ketorolac Tromethamine 15 Mg/Ml Vial IVPUSH 01/15/24 22:43 15 mg ONCE ONE Administration Ondansetron HCl 4 mg 01/15/24 19:30 01/15/24 19:43 Ondansetron Hcl 4 Mg/2 Ml Vial IVPUSH 01/15/24 19:31 4 mg ONCE ONE Administration Medical Decision Making Medical Decision Making MDM Narrative: 43-year-old female presents for evaluation of severe lower abdominal pain. She was complaints of back pain. Given that she had dull, achy pain about a week Yo and worsening pain over the last 2 days, I have a high concern the patient has a ruptured appendicitis. Plan for labs, CT scan of the abdomen pelvis. Currently, the patient's vitals are within normal limits and she is stable Differential Diagnosis Differential Diagnoses: The differential diagnosis associated with the presentation includes Appendicitis Ruptured appendicitis Bowel obstruction Pancreatitis Cholecystitis colitis Bowel perforation Diverticulitis Lab Data MDM Lab Attestation statement: I reviewed the patient's lab results. No leukocytosis or anemia. The patient does have a significant left shift with 92% neutrophils and 5% bandemia. No significant chemistry abnormalities 01/15/24 23:48 01/15/24 19:39 Labs: Lab Results 01/15/24 01/15/24 01/15/24 Range/Units 19:39 22:22 23:48 WBC 8.7 7.2 (4.8-10.8) X10*3/uL RBC 4.64 4.20 (4.20-5.50) X10*6/uL Hgb 14.8 13.6 (12.0-16.0) g/dl Hct 42.8 39.0 (37.0-47.0) % MCV 92.2 92.9 (80.0-98.0) fL MCH 31.9 32.4 (27.0-33.0) pg MCHC 34.6 34.9 (31.0-35.0) g/dl RDW 11.9 11.9 (11.0-16.0) % Plt Count 286 250 (160-400) X10*3/uL MPV 8.5 L 8.3 L (9.4-12.3) fL Immature Gran % (Auto) Cancelled 0.3 Neut % (Auto) Cancelled 87.3 H Lymph % (Auto) Cancelled 5.3 L [place] % (Auto) Cancelled 4.6 Eos % (Auto) Cancelled 2.2 Baso % (Auto) Cancelled 0.3 Lymph # (Auto) Cancelled 0.4 L [place] # (Auto) Cancelled 0.3 Eos # (Auto) Cancelled 0.2 Baso # (Auto) Cancelled 0.0 Abs Immat Gran (auto) Cancelled 0.02 Absolute Neuts (auto) Cancelled 6.3 Absolute Nucleated RBC 0.000 0.000 (0.0-0.012) X10*3/uL Nucleated RBC % (auto) 0.0 0.0 (0.0-0.2) /100WBC Neutrophils % (Manual) 92 H (45-73) % Band Neutrophils % 5 (3-5) % Lymphocytes % (Manual) 1 L (20-40) % Monocytes % (Manual) 2 (2-11) % Abs Neuts (Manual) 8.4 H (2.0-8.3) X10*3/uL Lymphocytes # (Manual) 0.1 L (1.2-4.9) X10*3/uL Monocytes # (Manual) 0.2 (0.1-1.2) X10*3/uL Platelet Estimate NORMAL (NORMAL) Plt Morphology Comment NORMAL RBC Morphology NORMAL Smear Tech's Comments MANUAL DIFF Sodium 136 (135-145) mmol/L Potassium 3.7 (3.3-5.1) mmol/L Chloride 106 (96-108) mmol/L Carbon Dioxide 21 L (22-29) mmol/L Anion Gap 13 (12-20) BUN 11 (9-16) mg/dL Creatinine 0.81 (0.5-1.4) mg/dL Estim Creat Clear Calc 96.3 Estimated GFR > 60 Random Glucose 107 (60-115) mg/dL Calcium 8.6 (8.4-10.2) mg/dL Total Bilirubin 0.7 (0.0-1.0) mg/dL AST 19 (5-31) U/L ALT 17 (0-31) U/L Alkaline Phosphatase 49 (39-117) U/L Total Protein 6.9 (6.5-8.0) g/dL Albumin 4.4 (3.5-5.0) g/dL Beta HCG, Quant < 2 mIU/mL Urine Color Yellow Urine Appearance Clear Urine pH 5.0 (5.0-9.0) Ur Specific [place] >= 1.030 H (1.005-1.025) Urine Protein Negative (Neg-Trace) mg/dL Urine Glucose (UA) Negative (Negative) mg/dL Urine Ketones Negative (Negative) mg/dL Urine Blood Small (1+) H (Negative) Urine Nitrite Negative (Negative) Ur Leukocyte Esterase Trace H (Negative) Urine RBC 3-5 H (0-2) /HPF Urine WBC 6-10 H (0-5) /HPF Ur Squamous Epith Cells 3-5 (0-2) /HPF Urine Bacteria None Seen (None Seen) Hyaline Casts 0-2 (0-2) /LPF Influenza Type A (PCR) NEGATIVE (Negative) Influenza Type B (PCR) NEGATIVE (Negative) RSV RNA Qual (PCR) NEGATIVE (Negative) SARS-CoV-2 RNA (RT-PCR) NEGATIVE (Negative) Independent Interpretation I performed an independent interpretation of an: Ultrasound (Concern for left ovarian cyst with possible ovarian cyst rupture) Radiology Impression Discussion of test interpretation with radiology: I have reviewed the radiologist's reading. (CT scan without any concerning abnormalities to explain the patient's pain) Discharge Plan Discharge Clinical Impression: Abdominal pain, Ovarian cyst Patient Disposition: Home, Self-Care Instructions: Ovarian Cyst (ED), Abdominal Pain (ED) Additional Instructions: Your workup in the ER today was reassuring. Your CT scan did not show any concerning abnormalities. Your ultrasound showed concern for a ruptured left ovarian cyst which is likely the cause of your discomfort Follow-up with your primary doctor Return for new or worsening symptoms Prescriptions: No Action albuterol sulfate [ProAir HFA] 90 mcg/actuation HFA aerosol inhaler 2 puff inhalation Q6H PRN (Reason: shortness of breath or wheezing) 30 Days Qty: 18 5RF Zyrtec 10 mg capsule 10 mg PO DAILY Qty: 90 0RF Mirena 20 mcg/24 hours (7 yrs) 52 mg intrauterine device 1 device intrauterine ONCE Qty: 1 0RF Mirena 20 mcg/24 hours (6 yrs) 52 mg intrauterine device intrauterine Stand Alone Forms: Work/School Release
[2024-01-15 20:09] LABS: SLIDE REVIEW MANUAL DIFF
[2024-01-15 20:11] LABS: Alanine Aminotransferase 17 U/L (0-31); Albumin Level 4.4 g/dL (3.5-5.0); Alkaline Phosphatase 49 U/L (39-117); Anion Gap 13 (12-20); Aspartate Amino Transferase 19 U/L (5-31); Bilirubin Total 0.7 mg/dL (0.0-1.0); Blood Urea Nitrogen 11 mg/dL (9-16); Calcium 8.6 mg/dL (8.4-10.2); Carbon Dioxide 21 mmol/L (22-29); Chloride 106 mmol/L (96-108); Creatinine Clr Calc Pharmacy 96.3; Estimated Glomerular Filt Rate > 60; Glucose Random 107 mg/dL (60-115); Potassium 3.7 mmol/L (3.3-5.1); Sodium 136 mmol/L (135-145); Total Protein 6.9 g/dL (6.5-8.0)
[2024-01-15 20:12] LABS: Band Neutrophils Percent 5 % (3-5); Lymphocytes Absolute Manual 0.1 X10*3/uL (1.2-4.9); Lymphocytes Percent Manual 1 % (20-40); Monocytes Absolute Manual 0.2 X10*3/uL (0.1-1.2); Monocytes Percent Manual 2 % (2-11); Neutrophils Absolute Manual 8.4 X10*3/uL (2.0-8.3); Neutrophils Percent Manual 92 % (45-73)
[2024-01-15 20:14] LABS: HCG Quantitative < 2 mIU/mL; Platelet Estimate NORMAL (NORMAL); Platelet Morphology Comment NORMAL; RBC Morphology NORMAL
[2024-01-15 20:27] LABS: Influenza A PCR NEGATIVE (Negative); Influenza B PCR NEGATIVE (Negative); Resp Syncy Virus RNA Qual PCR NEGATIVE (Negative); SARS COV2 PCR INHOUSE NEGATIVE (Negative)
[2024-01-15] MEDS: iohexoL 350 MG/ML 100 ML INFUS..BTL IV (20:34)
[2024-01-15 22:32] LABS: Appearance Urine Clear; Color Urine Yellow; Glucose Urine UA Negative (Negative); Leukocyte Esterase Urine Trace (Negative); Nitrite Urine Negative (Negative); Specific Gravity - Urine >= 1.030 (1.005-1.025); UMIC TRIGGER UACC YES; Urine Blood Small (1+) (Negative); Urine Ketones Negative (Negative); Urine Protein Negative (Neg-Trace)
[2024-01-15 22:42] LABS: Bacteria Urine None Seen (None Seen); Hyaline Casts Urine 0-2 /LPF (0-2); UACC Culture Trigger YES
[2024-01-15 23:55] VITALS: BP 115/61; PULSE 92; RESP 16; TEMP 37.6; O2SAT 94
[2024-01-15 23:56] LABS: MANUAL DIFF FLAG NO
[2024-01-15 23:59] LABS: Basophils Percent Auto 0.3 % (0-2); Eosinophils Absolute Auto 0.2 X10*3/uL (0.0-0.4); Eosinophils Percent Auto 2.2 % (0-4); Hemoglobin 13.6 g/dl (12.0-16.0); Imm Gran Abs Auto 0.02 X10*3/uL (0.00-0.03); Imm Gran Pct Auto 0.3 % (0.0-0.4); Lymphocytes Absolute Auto 0.4 X10*3/uL (1.2-4.9); Lymphocytes Percent Auto 5.3 % (20-40); Mean Corpuscular HGB Conc 34.9 g/dl (31.0-35.0); Mean Corpuscular Hemoglobin 32.4 pg (27.0-33.0); Mean Corpuscular Volume 92.9 fL (80.0-98.0); Mean Platelet Volume 8.3 fL (9.4-12.3); Monocytes Absolute Auto 0.3 X10*3/uL (0.1-1.2); Monocytes Percent Auto 4.6 % (2-11); Neutrophils Absolute Auto 6.3 x10*3/uL (2.0-8.3); Neutrophils Percent Auto 87.3 % (45-73); Platelet Count 250 X10*3/uL (160-400); Red Cell Distribution Width 11.9 % (11.0-16.0); White Blood Count 7.2 X10*3/uL (4.8-10.8)
[2024-01-16 00:06] LABS: Lactic Acid 0.6 mmol/L (0.5-2.0)
== END 2024-01-16 00:43 | disposition home or self-care (01) ==
PROVIDERS: Physician Assistant; Emergency Provider Emergency Medicine; PCP Internal Medicine
DX: N83.202 Unspecified ovarian cyst, left side (principal); R10.2 Pelvic and perineal pain; Z11.52 Encounter for screening for COVID-19; Z20.822 Contact with and (suspected) exposure to COVID-19; Z79.899 Other long term (current) drug therapy
CPT/HCPCS: 0241U; 36415; 74177; 76830; 76856; 80053; 81001; 83605; 84702; 85007; 85025; 85027; 87040; 87086; 96361; 96374; 96375; 96376; 99284; J1885; J2405; Q9967

== ENCOUNTER 2024-02-14 12:32 | Outpatient (AMB) | payer OTHER, SELFPAY ==
--- NOTE | 2024-02-14 12:34 | MHC.PC.OV ---
Vital Signs 02/14/24 12:37 Height 5 ft 7 in Weight 171 lb 6 oz BMI 26.8 BP 112/76 Blood Pressure Location Lt brachial Position Sitting Pulse 76 Pulse Source Pulse Oximeter Pulse Oximetry (%) 98 Oxygen Delivery Method Room Air Intake Visit Reasons: pe Intake Note: Patient is here today for a physical. 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 Accompanied by: Daughter Allergies kiwi [Kiwi (Actinidia Chinensis)] Allergy (Unknown, Verified 02/14/24 12:55) UNKNOWN SEASONAL ALLERGIES Allergy (Mild, Uncoded 02/14/24 12:55) SNEEZE, RUNNY NOSE Medication List - Last Reconciled 02/14/24 by Grayson Martinez MD albuterol sulfate 90 mcg/actuation (ProAir HFA) 2 puffs inhalation Q6H PRN 30 days cetirizine (Zyrtec) 10 mg PO DAILY levonorgestrel (Mirena) intrauterine Tobacco use date assessed: 02/14/24 Dental Screening Dental Screen Date: 02/14/24 Did you have a dental visit in the last 12 months?: No Did you have a dental problem in the last 6 months where you did not have access to dental care?: No Was dental information given to patient?: Patient has dentist HPI pe HPI Details Patient comes in today for her annual physical examination States that she feels okay She denies any headaches or dizziness Denies any chest pains, no SOB No nausea/vomiting, no abdominal pain but states that she feels bloated often States that she has been experiencing constipation often again lately - she has had issues with constipation often when growing up She recently tried some generic fiber supplements and states that they ended up making her stomach feel worse and she would sometime actually get some loose stools and feels more bloated while she was on them but she could never get her bowel movements regulated so she stopped taking them States that lately, she would go for days without any bowel movements and her stomach would start to get bloated and feel uncomfortable on the 3rd day She denies any acute urinary symptoms She had some labs done at the ER last month when she went there for increasing abdominal pain Had abdominal and pelvic CT done which showed no significant abnormality although there is a small simple left ovarian cyst seen on imaging Her last pap smear was done in 05/2022 and she last had her annual mammogram done in 01/2023 She underwent endometrial Bx in 08/[address] Lewis - pathology came back benign [facility] Medical History (Updated 02/14/24 @ 13:33 by Grayson Martinez MD) Overweight (BMI 25.0-29.9) CARLOS III (cervical intraepithelial neoplasia III) Obesity (BMI 30-39.9) Pure hypercholesterolemia Vitamin D deficiency Migraine Asthma Surgical History H/O LEEP History of tonsillectomy and adenoidectomy Family History Father Hypertension Asthma Mother Hypertension Maternal Grandmother No problems noted. 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 1. Little interest or pleasure in doing things: not at all 2. Feeling down, depressed, or hopeless: not at all 3. Trouble falling or staying asleep, or sleeping too much: not at all 4. Feeling tired or having little energy: not at all 5. Poor appetite or overeating: not at all 6. Feeling bad about yourself - or that you are a failure or have let yourself or your family down: not at all 7. Trouble concentrating on things, such as reading the newspaper or watching television: not at all 8. Moving or speaking so slowly that other people could have noticed. Or the opposite - being so fidgety or restless that you have been moving around a lot more than usual: not at all 9. Thoughts that you would be better off or of hurting yourself in some way: not at all Total score: 0 Depression Screening Interpretation: Negative Depression Screening Done: Yes 18789 - PHQ-9 Billing: Yes Source: Developed by Drs. Randolph Gamino, Kenny Bay and colleagues, with an educational milady from [employer]. Thrive Questionnaire Date Thrive assessed: 02/14/24 I am a: Patient What is your living situation today?: I have a steady place to live Within the past 12 months, did the food you bought not last and you didn't have the money to get more?: Never true Within the past 12 months, did you worry whether your food would run out before you got money to buy more?: Never true Do you have trouble paying for medicines?: No Do you have trouble getting transportation to medical appointments?: No Do you have trouble paying your heating and electricity bill?: No Do you have trouble taking care of your child, family member or friend?: No Do you have trouble with day-to-day activities such as bathing, preparing meals, shopping, managing finances, etc.?: No Are you currently unemployed and looking for a job?: No Are you interested in more education?: No Currently or been in a relationship where the following occur: no concerns reported THRIVE Score: 0 AUDIT C Alcohol Use Questionnaire (AUDIT-C) 1. How often do you have a drink containing alcohol?: Monthly or less 2. How many drinks containing alcohol do you have on a typical day when you are drinking?: 1 or 2 Total Score: 1 Score Reviewed/Action Taken: Yes TURNER-7 AMB Questionnaire TURNER-7 Date TURNER - 7 assessed: 02/14/24 Feeling nervous, anxious, or on edge: 0 = Not at all Not being able to stop or control worryin = Not at all Worrying too much about different things: 0 = Not at all Trouble relaxin = Not at all Being so restless that it is hard to sit still: 0 = Not at all Becoming easily annoyed or irritable: 0 = Not at all Feeling afraid as if something awful might happen: 0 = Not at all Total TURNER-7 score (0-4 normal; 5-9 mild; 10-14 moderate; 15-21 severe): 0 Source: Developed by Lisy Dunham Darren, Kenny Palacio and colleagues, with an educational milady from [employer]. Review of Systems Const Denies chills, Denies fatigue, Denies fever(s), Denies headache(s) and Denies malaise Eyes Denies blurry vision, Denies change in vision, Denies irritation and Denies itchy eyes ENT Denies dysphagia, Denies dizziness, Denies otalgia, Denies headache(s), Denies nasal congestion, Denies neck pain, Denies odynophagia, Denies sinus pain and Denies sore throat Card Denies chest pain, Denies rapid heart rate, Denies irregular heart rhythm, Denies palpitations and Denies dyspnea Resp Denies chest congestion, Denies cough, Denies dyspnea and Denies wheezing GI Denies abdominal pain, Reports bloating (frequent), Reports constipation (recurrent), Denies dysphagia, Denies heartburn, Denies diarrhea, Denies nausea, Denies odynophagia and Denies vomiting Denies hematuria, Denies urinary frequency, Denies dysuria, Denies urinary incontinence and Denies urinary urgency Musc Denies back pain, Denies arthralgias, Denies joint swelling, Denies muscle weakness and Denies neck pain Skin/Breast Denies breast pain, Denies breast mass, Denies change in pigmentation, Denies lesions, Denies rash and Denies unusual bruising Neuro Denies dizziness, Denies headache(s) and Denies paresthesias Psych Denies anxiety and Denies depression Endo Denies fatigue and Denies palpitations Fredi/Lymph Denies easy bruising Aller/Immun Denies itchy eyes and Denies wheezing Physical exam (Primary Care) Vital Signs: Last Vital Signs Pulse 76 02/14/24 12:37 BP 112/76 02/14/24 12:37 Pulse Ox 98 02/14/24 12:37 Oxygen Delivery Method Room Air 02/14/24 12:37 BMI result Body Mass Index 26.8 Tobacco/Smoking Status: Tobacco use Status Tobacco use date assessed 02/14/24 02/14/24 12:43 Patient Tobacco Use Status Former Tobacco user 02/14/24 12:43 Tobacco use type Cigarette 02/14/24 12:43 e-Cigarette/Vaping Use Never Used 02/14/24 12:43 PHQ-9: PHQ-9 Score PHQ-9: Total score 0 02/14/24 12:53 Depression Screening Interpretation: Negative Thrive Assessment: Date of Thrive Assessment Date Thrive assessed 02/14/24 02/14/24 12:43 Currently or been in a relationship where the following occur: no concerns reported Const General: no acute distress, alert and awake Orientation/consciousness: patient oriented x3 HENMT Head: Yes normocephalic and Yes atraumatic Ears: external ears normal, TM's normal bilaterally and EAC's normal General nose exam: No nasal discharge present Face and sinus: Yes normal facial exam and Yes sinuses nontender Teeth and gingiva: dentition normal Throat: Yes posterior oropharynx normal and Yes tonsils normal (no TP congestion) Eyes Eyelids: Yes eyelids normal Conjunctivae: conjunctivae normal Pupils: Equal, round and reactive pupils present EOM: EOMs intact bilaterally Neck Neck: Yes no lymphadenopathy and Yes supple Thyroid: Thyroid normal Resp Auscultation: clear to auscultation bilaterally, no rales and no wheezes Cardio Rate: regular rate Rhythm: regular rhythm Heart sounds: no murmurs GI Palpation (GI): Soft to palpation, nontender and No hepatosplenomegaly present Auscultation: normal bowel sounds General: Yes no CVA tenderness Back/Spine/Pelvis Back: no CVA tenderness Thoracic/Lumbar Spine: thoracic and lumbar spine normal to inspection Skin Lesions: no lesions Rashes: no rashes Neuro General: patient oriented x3, moves all extremities, no focal motor deficits and CN's II-XI intact bilaterally Cranial nerves: Yes Equal, round and reactive pupils present Cognition (Neuro): normal cognition Gait exam (Neuro): Normal gait present Extrem General: Yes no clubbing, cyanosis or edema Results Reviewed Results Reviewed: Laboratory Tests 01/15/24 01/15/24 01/15/24 19:39 19:39 22:22 WBC Hgb Hct Plt Count Sodium 136 Potassium 3.7 Creatinine 0.81 Estimated GFR > 60 Random Glucose 107 Calcium 8.6 AST 19 ALT 17 Urine pH 5.0 Ur Specific [place] >= 1.030 H Urine Protein Negative Urine Glucose (UA) Negative Urine Blood Small (1+) H Urine Nitrite Negative Ur Leukocyte Esterase Trace H 01/15/24 01/15/24 01/15/24 23:48 23:48 23:48 WBC 7.2 Hgb 13.6 Hct 39.0 Plt Count 250 Sodium Potassium Creatinine Estimated GFR Random Glucose Calcium AST ALT Urine pH Ur Specific [place] Urine Protein Urine Glucose (UA) Urine Blood Urine Nitrite Ur Leukocyte Esterase Assessment and Plan Assessment & Plan (1) Annual physical exam: Code(s): Z00.00 - Encounter for general adult medical examination without abnormal findings Plan: Results of her labs done at the ER last month reviewed and discussed with patient Will send her for some additional labs to complete her yearly evaluation, including her fasting lipids, TSH and Vitamin D level She had her annual mammogram last done in January 2023 and is due for repeat She is also advised to contact her machine rope maker to schedule her next annual pap smear and gynecology exam (2) Chronic constipation: Code(s): K59.09 - Other constipation Plan: Reinforced again increased oral fluids and dietary fiber Discussed that she may have some component of IBS that is complicating her chronic constipation issues Will start her on a trial of Linzess 145 mcg QD - patient is instructed to call if this turns out to be not covered on her insurance (3) Asthma: Code(s): J45.909 - Unspecified asthma, uncomplicated Qualifiers: Asthma severity: mild Asthma persistence: intermittent Asthma complication type: uncomplicated Qualified Code(s): J45.20 - Mild intermittent asthma, uncomplicated Plan: Stable lately Continue Albuterol HFA 1 to 2 inhalations Q 6 hours PRN - Rx refilled (4) Pure hypercholesterolemia: Code(s): E78.00 - Pure hypercholesterolemia, unspecified Plan: Reinforced low cholesterol diet Will send patient for labs to recheck her fasting lipids for follow up (5) Vitamin D deficiency: Code(s): E55.9 - Vitamin D deficiency, unspecified Plan: Will recheck her Vitamin D level for follow up (6) Migraine: Code(s): G43.909 - Migraine, unspecified, not intractable, without status migrainosus Qualifiers: Migraine type: unspecified Status migrainosus presence: without status migrainosus Intractability: not intractable Qualified Code(s): G43.909 - Migraine, unspecified, not intractable, without status migrainosus Plan: States that her headaches have been stable/well-controlled lately Reinforced avoidance of any potential migraine triggers (7) Seasonal allergies: Code(s): J30.2 - Other seasonal allergic rhinitis Plan: Continue Cetirizine 10 mg QD PRN (8) Overweight (BMI 25.0-29.9): Code(s): E66.3 - Overweight Plan: Reinforced diet/exercise as tolerated/lose weight (9) Breast cancer screening by mammogram: Code(s): Z12.31 - Encounter for screening mammogram for malignant neoplasm of breast Plan: Will send her for repeat screening mammogram Plan Follow up in 6 months Orders: Orders Lipid Panel Today E78.00 - Pure hypercholesterolemia, unspecified, Z00.00 - Encounter for general adult medical examination without abnormal findings Vitamin D 25-OH Total Today E55.9 - Vitamin D deficiency, unspecified, Z00.00 - Encounter for general adult medical examination without abnormal findings TSH reflex Free T4 Today E78.00 - Pure hypercholesterolemia, unspecified, Z00.00 - Encounter for general adult medical examination without abnormal findings MM tomosynthesis screening BI Today Z12.31 - Encounter for screening mammogram for malignant neoplasm of breast Medications: New Linzess (linaclotide) 145 mcg PO QAM 90 days 90 caps 1RF NS Changed From albuterol sulfate 90 mcg/actuation (ProAir HFA) 2 puffs inhalation Q6H 30 days PRN 18 grams 5RF shortness of breath or wheezing J45.909 - Unspecified asthma, uncomplicated To albuterol sulfate 90 mcg/actuation (Ventolin HFA) 2 puffs inhalation Q6H 30 days PRN 8.5 grams 5RF shortness of breath or wheezing J45.909 - Unspecified asthma, uncomplicated Coding Level of Care Code Est Pt Prev Care 40-64y(13349) Diagnoses Annual physical exam Z00.00 Chronic constipation K59.09 Mild intermittent asthma without complication J45.20 Asthma severity: mild Asthma persistence: intermittent Asthma complication type: uncomplicated Pure hypercholesterolemia E78.00 Vitamin D deficiency E55.9 Migraine without status migrainosus, not intractable, unspecified migraine type G43.909 Migraine type: unspecified Status migrainosus presence: without status migrainosus Intractability: not intractable Seasonal allergies J30.2 Overweight (BMI 25.0-29.9) E66.3 Breast cancer screening by mammogram Z12.31
[2024-02-14 12:37] VITALS: BP 112/76; PULSE 76; O2SAT 98; BMI 26.8
== END 2024-02-14 13:20 | disposition home or self-care (01) ==
PROVIDERS: PCP Internal Medicine; Visit Provider Internal Medicine
DX: Z00.00 Encounter for general adult medical examination without abnormal findings (principal); K59.09 Other constipation; J45.20 Mild intermittent asthma, uncomplicated; E78.00 Pure hypercholesterolemia, unspecified; E55.9 Vitamin D deficiency, unspecified; G43.909 Migraine, unspecified, not intractable, without status migrainosus; J30.2 Other seasonal allergic rhinitis; E66.3 Overweight; Z12.31 Encounter for screening mammogram for malignant neoplasm of breast
CPT/HCPCS: 99396

== ENCOUNTER 2024-02-25 20:59 | Emergency (ER) | payer OTHER, SELFPAY ==
--- NOTE | 2024-02-25 | ECG_ITS ---
Test Reason : TACHY Blood Pressure : / mmHG Vent. Rate : 106 BPM Atrial Rate : 106 BPM P-R Int : 164 ms QRS Dur : 088 ms QT Int : 340 ms P-R-T Axes : 071 069 049 degrees QTc Int : 451 ms Sinus tachycardia T wave abnormality, consider anterolateral ischemia Abnormal ECG When compared with ECG of 23-AUG-2019 09:16, Nonspecific T wave abnormality now evident in Inferior leads T wave inversion now evident in Anterolateral leads Referred By: Generic ED Physician Electronically Signed By:ARABELLA DE LEON MD
[2024-02-25 21:03] VITALS: BP 144/87; PULSE 130; RESP 18; TEMP 36.6; O2SAT 99; BMI 27.4
--- NOTE | 2024-02-25 21:46 | MHC.EDTECH ---
Patient brought into triage area,EKG taken per order and signed by provider,labs,sars/flu/rsv, and urine obtained and sent to lab.
[2024-02-25 21:58] LABS: Appearance Urine Cloudy; Basophils Percent Auto 0.3 % (0-2); Color Urine Dark Yellow; Eosinophils Absolute Auto 0.1 X10*3/uL (0.0-0.4); Eosinophils Percent Auto 1.2 % (0-4); Glucose Urine UA Negative (Negative); Hematocrit 43.7 % (37.0-47.0); Hemoglobin 15.4 g/dl (12.0-16.0); Imm Gran Abs Auto 0.02 X10*3/uL (0.00-0.03); Imm Gran Pct Auto 0.2 % (0.0-0.4); Leukocyte Esterase Urine Trace (Negative); Lymphocytes Absolute Auto 0.4 X10*3/uL (1.2-4.9); Lymphocytes Percent Auto 3.4 % (20-40); MANUAL DIFF FLAG SCAN; Mean Corpuscular HGB Conc 35.2 g/dl (31.0-35.0); Mean Corpuscular Hemoglobin 31.8 pg (27.0-33.0); Mean Corpuscular Volume 90.3 fL (80.0-98.0); Mean Platelet Volume 8.4 fL (9.4-12.3); Monocytes Absolute Auto 0.5 X10*3/uL (0.1-1.2); Monocytes Percent Auto 4.3 % (2-11); Neutrophils Absolute Auto 9.5 x10*3/uL (2.0-8.3); Neutrophils Percent Auto 90.6 % (45-73); Nitrite Urine Negative (Negative); PH 5.5 (5.0-9.0); Platelet Count 305 X10*3/uL (160-400); Red Blood Count 4.84 X10*6/uL (4.20-5.50); SCAN SMEAR FLAG 1; Specific Gravity - Urine >= 1.030 (1.005-1.025); UMIC TRIGGER UACC YES; Urine Blood Negative (Negative); Urine Ketones 40 mg/dL (Negative); Urine Protein Trace mg/dL (Neg-Trace); White Blood Count 10.4 X10*3/uL (4.8-10.8)
[2024-02-25 22:10] LABS: Bacteria Urine Trace (None Seen); Hyaline Casts Urine 0-2 /LPF (0-2); RBC Urine 0-2 /HPF (0-2); UACC Culture Trigger YES
[2024-02-25 22:12] LABS: Alanine Aminotransferase 18 U/L (0-31); Albumin Level 4.3 g/dL (3.5-5.0); Alkaline Phosphatase 49 U/L (39-117); Anion Gap 13 (12-20); Aspartate Amino Transferase 20 U/L (5-31); Bilirubin Total 0.8 mg/dL (0.0-1.0); Blood Urea Nitrogen 17 mg/dL (9-16); Calcium 8.8 mg/dL (8.4-10.2); Carbon Dioxide 22 mmol/L (22-29); Chloride 104 mmol/L (96-108); Creatinine Clr Calc Pharmacy 100.6; Estimated Glomerular Filt Rate > 60; Glucose Random 120 mg/dL (60-115); Lipase 29 U/L (8-78); Magnesium 1.6 mg/dL (1.6-2.6); Potassium 3.8 mmol/L (3.3-5.1); Sodium 135 mmol/L (135-145); Total Protein 6.8 g/dL (6.5-8.0)
[2024-02-25 22:16] LABS: SLIDE REVIEW VERIFIED
[2024-02-25 22:33] LABS: Influenza A PCR NEGATIVE (Negative); Influenza B PCR NEGATIVE (Negative); Resp Syncy Virus RNA Qual PCR NEGATIVE (Negative); SARS COV2 PCR INHOUSE NEGATIVE (Negative)
== END 2024-02-26 00:57 | disposition left against medical advice (07) ==
PROVIDERS: Emergency Provider Emergency Medicine; PCP Internal Medicine
DX: R11.2 Nausea with vomiting, unspecified (principal); R00.0 Tachycardia, unspecified; Z03.818 Encounter for observation for suspected exposure to other biological agents ruled out; Z79.899 Other long term (current) drug therapy
CPT/HCPCS: 0241U; 80053; 81001; 83690; 83735; 85025; 87086; 93005; 99283

== ENCOUNTER → 2024-02-25 21:34 | Outpatient (BNV) | payer OTHER, SELFPAY | PROVIDERS: Emergency Provider Emergency Medicine; PCP Internal Medicine; Visit Provider Internal Medicine Cardiovascular Disease | DX: R00.0 Tachycardia, unspecified (principal) | CPT/HCPCS: 93010 ==

== ENCOUNTER 2024-12-10 15:46 | Outpatient (REF) | payer BC, SELFPAY | END 2024-12-10 15:47 | disposition home or self-care (01) | LOC: HO.MAMMO 15:46 | PROVIDERS: PCP Obstetrics & Gynecology; Visit Provider Internal Medicine | DX: Z13.89 Encounter for screening for other disorder (principal) ==

== ENCOUNTER 2024-12-18 15:15 | Outpatient (REF) | payer BC, SELFPAY ==
[2024-12-18 17:11] LABS: Hematocrit 41.9 % (37.0-47.0); Mean Corpuscular HGB Conc 33.4 g/dl (31.0-35.0); Mean Corpuscular Hemoglobin 31.7 pg (27.0-33.0); Mean Corpuscular Volume 94.8 fL (80.0-98.0); Mean Platelet Volume 9.1 fL (9.4-12.3); Platelet Count 357 X10*3/uL (160-400); Red Blood Count 4.42 X10*6/uL (4.20-5.50); Red Cell Distribution Width 11.5 % (11.0-16.0); White Blood Count 9.3 X10*3/uL (4.8-10.8)
[2024-12-18 18:07] LABS: HCG Quantitative < 2 mIU/mL; TSH reflex Free T4 1.65 uIU/mL (0.32-4.0)
[2024-12-18 20:32] LABS: TSH reflex Free T4 1.65 uIU/mL (0.32-4.0); Vitamin D 25-OH Total 71.4 ng/mL (>30)
[2024-12-19 03:29] LABS: Syphilis Screen Nonreactive (Nonreactive)
[2024-12-19 03:45] LABS: HBsAGNum1 0.33 S/CO (0.00-0.99); HIV AB/AG Nonreactive (Nonreactive); HIV Num 1 0.18 S/CO (0.00-0.99); Hepatitis B Surface Antigen Negative (Negative); ~Hepatitis C Antibody Nonreactive (Nonreactive)
[2024-12-19 06:12] LABS: CT PCR NOT DETECTED (Not Detect.); NG PCR NOT DETECTED (Not Detect.)
[2024-12-19 11:12] LABS: Bacterial Vaginosis PCR POSITIVE (Negative); Candida Group PCR NOT DETECTED (Not Detect); Candida glab krusei PCR NOT DETECTED (Not Detect); Trichomonas vaginalis PCR NOT DETECTED (Not Detect)
== END 2024-12-18 15:16 | disposition home or self-care (01) ==
LOC: HO.LAB 15:15
PROVIDERS: PCP Obstetrics & Gynecology; Referring Provider Internal Medicine; Visit Provider Obstetrics & Gynecology
DX: Z01.419 Encounter for gynecological examination (general) (routine) without abnormal findings (principal); E55.9 Vitamin D deficiency, unspecified; E78.00 Pure hypercholesterolemia, unspecified; N93.9 Abnormal uterine and vaginal bleeding, unspecified; N63.24 Unspecified lump in the left breast, lower inner quadrant; Z20.2 Contact with and (suspected) exposure to infections with a predominantly sexual mode of transmission; Z11.3 Encounter for screening for infections with a predominantly sexual mode of transmission
CPT/HCPCS: 36415; 81515; 82306; 84443; 84702; 85027; 86780; 86803; 87340; 87389; 87491; 87591

== ENCOUNTER 2024-12-18 16:27 | Outpatient (REF) | payer BC, SELFPAY ==
[2024-12-28 15:04] LABS: HPV Genotype 16 Negative (Negative); HPV Genotype 18 Negative (Negative); HPV High Risk Positive (Negative)
== END 2024-12-18 16:28 | disposition home or self-care (01) ==
LOC: HO.LNP 16:27
PROVIDERS: Visit Provider Obstetrics & Gynecology
DX: Z01.419 Encounter for gynecological examination (general) (routine) without abnormal findings (principal); N93.9 Abnormal uterine and vaginal bleeding, unspecified; Z87.42 Personal history of other diseases of the female genital tract
CPT/HCPCS: 87626; 88175

== ENCOUNTER 2024-12-28 10:44 | Outpatient (REF) | payer BC, SELFPAY | END 2024-12-28 10:45 | disposition home or self-care (01) | LOC: HO.MAMMO 10:44 | PROVIDERS: PCP Internal Medicine; Visit Provider Obstetrics & Gynecology | DX: N63.24 Unspecified lump in the left breast, lower inner quadrant (principal) ==

== ENCOUNTER 2025-01-01 15:43 | Outpatient (REF) | payer BC, SELFPAY | END 2025-01-01 15:44 | disposition home or self-care (01) | LOC: HO.LNP 15:43 | PROVIDERS: PCP Obstetrics & Gynecology; Visit Provider Obstetrics & Gynecology | DX: N93.9 Abnormal uterine and vaginal bleeding, unspecified (principal); R87.610 Atypical squamous cells of undetermined significance on cytologic smear of cervix (ASC-US); R87.810 Cervical high risk human papillomavirus (HPV) DNA test positive; N60.02 Solitary cyst of left breast; N60.01 Solitary cyst of right breast; Z32.02 Encounter for pregnancy test, result negative | CPT/HCPCS: 57454; 58110; 81025; 88305 ==

== ENCOUNTER 2025-01-01 15:43 | Outpatient (AMB) | payer BC, SELFPAY ==
--- NOTE | 2025-01-01 15:48 | MHC.OFFVIS ---
Vital Signs 01/01/25 15:49 Height 5 ft 7 in Weight 175 lb BMI 27.4 Intake Visit Reasons: EMB,colpo/Breast u/s follow up Allergies kiwi [Kiwi (Actinidia Chinensis)] Allergy (Unknown, Verified 12/18/24 15:56) UNKNOWN SEASONAL ALLERGIES Allergy (Mild, Uncoded 02/14/24 12:55) SNEEZE, RUNNY NOSE HPI Comments Details: Presenting for follow-up breast lump, endometrial biopsy Bilateral diagnostic mammogram and bilateral breast ultrasound showed the following: IMPRESSION: Bilateral simple cyst on ultrasound. Benign. No mammographic or sonographic abnormality to account for the patient's left breast pain from 4- 8:00. Recommend clinical evaluation and follow-up. Recommend yearly mammographic screening. ASSESSMENT: BI-RADS BI-RADS 2 - Benign Findings . Pap smear showed ASCUS HPV positive, HPV 16/18 negative [facility] Medical History Overweight (BMI 25.0-29.9) CARLOS III (cervical intraepithelial neoplasia III) Obesity (BMI 30-39.9) Pure hypercholesterolemia Vitamin D deficiency Migraine Asthma Surgical History H/O LEEP History of tonsillectomy and adenoidectomy Family History Father Hypertension Asthma Mother Hypertension Maternal Grandmother No problems noted. 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 We thoroughly discussed the procedure itself, including its details, alternatives, and all associated risks. This included but not limited to the following complications such as bleeding, infection, and injury to the vagina, bladder, and vessels, as well as the potential need for transfusion with all its associated risks. Subsequently, the patient sign the consent. Pap smear result: Ascus/HPV positive. Urine test in office = Negative Procedure: During the procedure, the following steps were performed: A speculum was inserted, and acetic acid was applied. Colposcopy was conducted, allowing visualization of the transformation zone. Acetowhite lesions were identified at the 11+ 12 o'clock position. Cervical biopsies were obtained from the 11+ 12 o'clock position, followed by an endocervical curettage (ECC). Vaginoscopy of the upper vagina revealed no evidence of aceto-white lesions. Hemostasis was achieved using Monsel solution, and the patient tolerated the procedure well. Post-Procedure Instructions: The patient was advised to promptly contact the office or the after hours answering service or go to the emergency room if experiencing a temperature exceeding 100.4?F, abdominal pain, nausea/vomiting, or bleeding. Additionally, the patient was instructed to abstain from vaginal intercourse and bathtub use. The patient confirmed understanding of these instructions. Discharge Instructions: The patient was instructed to schedule a follow-up appointment in 2 weeks for further evaluation and management. Please note that this note was generated using a voice recognition program, and errors may have occurred during police commanding officer. [id number] of cervix including upper vagina with biopsy and ECC Procedure code (CPT) selection complete Endometrial Biopsy Details: The patient was counseled regarding the indication and benefits of endometrial sampling to rule out endometrial pathology including not limited to endometrial hyperplasia or endometrial cancer and others; The alternatives (Either do nothing vs. hysteroscopy D&C) & the risks were discussed with the patient including but not limited: pain, uterine perforation, bleeding, infection, possible injury to bladder, bowel, ureter, possible need for blood transfusion with all its possible risks. The patient verbalized understanding all questions answered and signed consent. Urine test done in the office was negative The patient was placed into the dorsal lithotomy position; a speculum was inserted in the vagina. Using aseptic technique for the procedure, the cervix was cleansed with Betadine. The anterior lip of the cervix was grasped with a single tooth tenaculum. The uterus was sounded to 7 cm with a 4 mm Pipelle was used. Tissues samples were obtained and placed in formalin, in a patient labeled container and sent to the pathology department. At the end of the procedure, there was minimal bleeding noted The patient tolerated the procedure well and was discharged in good condition with the following instructions: Nothing in the vagina until the bleeding stops. No sex until the bleeding stops, to call if any of the following occurs: fever (>100.4), flu-like symptoms, abdominal pain, heavy bleeding, four smelling vaginal discharge. The patient was instructed to schedule a Follow up appointment in 2 weeks to discuss pathology results of the biopsy and treatment options. This note was generated with a voice recognition program. Some errors may have been overlooked during the review of this note. Sometimes these errors may affect the content or meaning of a given sentence. 29269-Eeqqosoidps Biopsy Results AMB Test Urine AMB Test Urine Negative Last Edit by Marian Garcia CMA on 01/01/25 16:14 Assessment & Plan Assessment & Plan (1) Bilateral breast cysts: Code(s): N60.01 - Solitary cyst of right breast; N60.02 - Solitary cyst of left breast Category: Medical Plan: Discussed with the patient the results the diagnostic mammogram and bilateral breast ultrasound, BI-RADS 2 showing bilateral simple ovarian cyst, general surgery referral placed on 12/18/2024, no appointment scheduled yet. General surgery office contacted to schedule general surgery consult for the patient. Instructed the patient to call our office back in case a referral appointment is not scheduled, missed or canceled so that we will assist on rescheduling another appointment, the patient verbalized understanding agreed with the plan. (2) Abnormal uterine bleeding (AUB): Comment: With post coital bleeding On Mirena IUD Code(s): N93.9 - Abnormal uterine and vaginal bleeding, unspecified Category: Medical Plan: EMB done, see procedure note (3) ASCUS with positive high risk HPV cervical: Code(s): R87.610 - Atypical squamous cells of undetermined significance on cytologic smear of cervix (ASC-US); R87.810 - Cervical high risk human papillomavirus (HPV) DNA test positive Category: Medical Plan: Discussed with the patient the result of her abnormal pap, its significance, risk of progression, persistence, and regression. the false positive/negative rate of a Pap smear as a screening test in detecting cervical cancer and the indication for a diagnostic test -colposcopy, biopsy, endocervical curettage. The patient verbalized understanding and agreed with the plan, all questions answered. Colpo biopsy ECC done, see procedure note Orders: Orders AMB HCG Urine Test Today Z32.02 - Encounter for test, result negative AMB Endometrial Biopsy Today N93.9 - Abnormal uterine and vaginal bleeding, unspecified Surgical Today N93.9 - Abnormal uterine and vaginal bleeding, unspecified, R87.610 - Atypical squamous cells of undetermined significance on cytologic smear of cervix (ASC-US), R87.810 - Cervical high risk human papillomavirus (HPV) DNA test positive AMB Colposcopy Today R87.610 - Atypical squamous cells of undetermined significance on cytologic smear of cervix (ASC-US), R87.810 - Cervical high risk human papillomavirus (HPV) DNA test positive Coding Level of Care Code Est Pt Level 3 (72183) Procedure Only Diagnoses Bilateral breast cysts N60.01; N60.02 Abnormal uterine bleeding (AUB) N93.9 ASCUS with positive high risk HPV cervical R87.610; R87.810 CPT Codes Colposcopy - CPT: 89012-Bdrvumcni of cervix including upper vagina with biopsy and ECC ([id number]) Endometrial Biopsy - CPT: 89116-Mcfyufzlnth Biopsy ([id number])
[2025-01-01 15:49] VITALS: BMI 27.4
== END 2025-01-02 09:37 | disposition home or self-care (01) ==
PROVIDERS: PCP Obstetrics & Gynecology; Visit Provider Obstetrics & Gynecology
DX: N60.01 Solitary cyst of right breast (principal); N60.02 Solitary cyst of left breast; N93.9 Abnormal uterine and vaginal bleeding, unspecified; R87.610 Atypical squamous cells of undetermined significance on cytologic smear of cervix (ASC-US); R87.810 Cervical high risk human papillomavirus (HPV) DNA test positive; Z32.02 Encounter for pregnancy test, result negative
CPT/HCPCS: 57454; 58110; 99213

== ENCOUNTER 2025-03-05 15:31 | Outpatient (REF) | payer BC, SELFPAY ==
--- NOTE | ~2025-03-05 | US_ITS ---
EXAMINATION: US PELVIS CLINICAL INFORMATION: Abnormal uterine and vaginal bleed. COMPARISON: January 15, 2024. TECHNIQUE: Ultrasound of the pelvis is performed using both transabdominal and transvaginal transducers along with Doppler. Transvaginal imaging is performed due to inadequate visualization transabdominally. FINDINGS: Uterus: The uterus is anteverted and measures 9 x 4 x 5 cm. Volume: 90 cc. There is an intrauterine contraceptive device in good position. The endocervical canal is closed with trace of fluid. The double wall endometrial thickness is not fully depicted due to intrauterine contraceptive device measures less than 4 mm . The uterus is smooth in contour and has normal myometrial echogenicity. No visible fibroid. Adnexa: Both ovaries are visualized. There is normal color flow to the adnexa. There is no ovarian torsion. There is no pelvic ascites or fluid collection. Right ovary measures 3 x 1 x 2 cm. Volume: 4 cc. No solid or cystic lesion. Left ovary measures 4 x 1 x 2 cm. Volume: 6 cc. There is a 2.3 cm anechoic structure. US/US pelvic and transvaginal IMPRESSION: Intrauterine contraceptive device in place. No ovarian torsion. 2.3 cm dominant follicle, left ovary. Electronically signed by: Juan George MD 03/06/2025 11:36 AM EDT
== END 2025-03-05 15:32 | disposition home or self-care (01) ==
LOC: HO.US 15:31
PROVIDERS: PCP Internal Medicine; Visit Provider Obstetrics & Gynecology
DX: N93.9 Abnormal uterine and vaginal bleeding, unspecified (principal); N63.24 Unspecified lump in the left breast, lower inner quadrant
CPT/HCPCS: 76830; 76856

== ENCOUNTER → 2025-03-05 15:34 | Outpatient (BNV) | payer BC, SELFPAY | PROVIDERS: PCP Internal Medicine; Visit Provider Radiology Diagnostic Radiology | DX: Z97.5 Presence of (intrauterine) contraceptive device (principal); N83.02 Follicular cyst of left ovary | CPT/HCPCS: 76830; 76856 ==

== ENCOUNTER 2025-03-13 12:21 | Outpatient (AMB) | payer BC, SELFPAY ==
--- NOTE | 2025-03-13 12:22 | MHC.OFFVIS ---
Intake Visit Reasons: TV Ultrasound follow up Allergies kiwi [Kiwi (Actinidia Chinensis)] Allergy (Unknown, Verified 12/18/24 15:56) UNKNOWN SEASONAL ALLERGIES Allergy (Mild, Uncoded 02/14/24 12:55) SNEEZE, RUNNY NOSE HPI Comments Details: The patient scheduled a telehealth visit for follow-up to discuss the results of her abnormal uterine bleeding workup and options of treatment. The following workup was done.: H&H= 14/41.9 TSH, hCG, GC and chlamydia were negative. Co testing was done was ascus/HPV positive, HPV 16/18 negative EMB in colpo biopsy ECC pathology showed the followin01/15 A. Endometrial biopsy: Predominantly benign endocervical glandular epithelium with rare benign squamous epithelium and rare benign inactive endometrial cells; insufficient for endometrial evaluation. B. Endocervix, curettage: Scant benign endocervical glandular and squamous epithelium. C. Cervix, 11:00, biopsy: Scant benign endocervical glandular epithelium and rare benign squamous epithelial cells. D. Cervix, 12:00, biopsy: Squamous mucosa and rare detached endocervical glandular epithelium; negative for dysplasia Mammogram was BI-RADS 2 Pelvic ultrasound showed the following: IMPRESSION: Intrauterine contraceptive device in place. No ovarian torsion. 2.3 cm dominant follicle, left ovary. [facility] Medical History (Updated 03/13/25 @ 12:31 by Jarred Lewis MD) Overweight (BMI 25.0-29.9) CARLOS III (cervical intraepithelial neoplasia III) Obesity (BMI 30-39.9) Pure hypercholesterolemia Vitamin D deficiency Migraine Asthma Surgical History H/O LEEP History of tonsillectomy and adenoidectomy Family History Father Hypertension Asthma Mother Hypertension Maternal Grandmother No problems noted. 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 Cognitive needs: No Hearing needs: No Vision needs: Yes (glasses) Female Reproductive History Menstrual Age of Menarche: 11 Review of Systems Const All systems reviewed & are unremarkable except as noted in HPI and below Reports as per HPI and Reports no additional complaints GI Reports no additional complaints Reports no additional complaints Telehealth Telehealth Telehealth Platform: Telephone Location of provider rendering services: practice address Location of patient: address on file Patient Identification confirmed using: Name, : Yes Telehealth method: voice only Patient verbally consented to treatment: Yes Patient verbally consented to billing insurance company: Yes Patient informed of any privacy concerns related to visit: Yes Minutes spent on Phone/Video with Pt.: 3 Assessment & Plan Assessment & Plan (1) Abnormal uterine bleeding (AUB): Comment: With post coital bleeding On Mirena IUD Code(s): N93.9 - Abnormal uterine and vaginal bleeding, unspecified Category: Medical Plan: Discussed with the patient the EMB pathology showing insufficient endometrial tissues for evaluation, recommended to the patient that the next step is an endometrial sampling via hysteroscopy D&C possible polypectomy versus endometrial biopsy to r/o endometrial pathology including hyperplasia or cancer. All the pros and cons risks and benefits of each approach were discussed with the patient, endometrial biopsy being less invasive, office procedure with less sensitivity and inability diagnose a polyp and removal versus hysteroscopy done under anesthesia more invasive more sensitive to endometrial cancer and possibility of diagnosing and endometrial polyp with the possibility of polypectomy. All questions were answered pt verbalized understanding and decided to proceed with endometrial biopsy. Instructions given the patient to schedule a 2 week EMB appointment (2) ASCUS with positive high risk HPV cervical: Code(s): R87.610 - Atypical squamous cells of undetermined significance on cytologic smear of cervix (ASC-US); R87.810 - Cervical high risk human papillomavirus (HPV) DNA test positive Category: Medical Plan: Discussed with the patient the pathology results of the colposcopy biopsies & endocervical curettage. Discussed with the patient the sensitivity specificity, positive and negative predictive value in detecting cervical cancer in addition discussed the regression, persistence and progression rates. Recommended co-testing in 12 months, if cytology and or HPV are abnormal will proceed was colposcopy biopsy and endocervical curettage. Instructions given to the patient to schedule a co test appointment in 1 year. All questions answered the patient verbalized understanding. I spent a total of 20 minutes reviewing the chart, talking to the patient via phone and documenting in the medical record. Coding Level of Care Code Tele Est Pt Level 3 (61290) Diagnoses Abnormal uterine bleeding (AUB) N93.9 ASCUS with positive high risk HPV cervical R87.610; R87.810
== END 2025-03-13 12:45 | disposition home or self-care (01) ==
LOC: HO.HWS 12:21
PROVIDERS: PCP Internal Medicine; Visit Provider Obstetrics & Gynecology
DX: N93.9 Abnormal uterine and vaginal bleeding, unspecified (principal); R87.610 Atypical squamous cells of undetermined significance on cytologic smear of cervix (ASC-US); R87.810 Cervical high risk human papillomavirus (HPV) DNA test positive
CPT/HCPCS: 99213

== ENCOUNTER 2025-07-02 16:11 | Outpatient (AMB) | payer BC, SELFPAY ==
[2025-07-02 16:18] VITALS: BP 122/80; PULSE 81; O2SAT 95; BMI 32.2
--- NOTE | 2025-07-02 16:18 | MHC.PC.OV ---
Vital Signs 07/02/25 16:18 Height 5 ft 7 in Weight 205 lb 6 oz BMI 32.2 BP 122/80 Blood Pressure Location Lt brachial Position Sitting Pulse 81 Pulse Source Pulse Oximeter Pulse Oximetry (%) 95 Oxygen Delivery Method Room Air Intake Visit Reasons: Annual exam Cotton Factor Required: No Accompanied by: Self / Same As Patient Allergies kiwi (Kiwi (Actinidia Chinensis)) Allergy (Unknown, Verified 07/02/25 16:42) UNKNOWN SEASONAL ALLERGIES Allergy (Mild, Uncoded 07/02/25 16:42) SNEEZE, RUNNY NOSE Medication List - Last Reconciled 07/02/25 by Grayson Martinez MD albuterol sulfate 90 mcg/actuation (Ventolin HFA) 2 puffs inhalation Q6H PRN 30 days cetirizine 10 mg PO DAILY PRN 90 days Tobacco use date assessed: 07/02/25 Dental Screening Dental Screen Date: 07/02/25 Did you have a dental visit in the last 12 months?: Yes Did you have a dental problem in the last 6 months where you did not have access to dental care?: No Was dental information given to patient?: Patient has dentist HPI Annual exam HPI Details Patient comes in today for her annual physical examination States that she has been experiencing recurrent premeopausal symptoms, including hot flashes, irregular menstrual bleeding and mood changes/irritability for a while now She is also frustrated by the perceived lack of responsiveness from her feather shaper's practice here at [facility] [place] [facility] for the past year - states that she's had an endometrial biopsy done earlier this year that came back inconclusive and was recommended to undergo endometrial sampling via hysteroscopy but she ended up missing her appointment and has not been able to get this rescheduled yet since States that she also wanted to discuss getting a tubal ligation done but felt that her feather shaper just keeps brushing her off regarding this and has not really explained why She has also gained a lot of weight since she was last seen here over a year and a half ago as she states that 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 for 8 to 16 hours a day States that she tries to eat healthy and has stayed away from any sweet or high calorie drinks and mostly just drinks water all day long She otherwise denies any headaches or dizziness Denies any chest pains, no SOB No nausea/vomiting, no abdominal pain No change in bowel habits noted as she still continues to struggle with chronic constipation - states that she is no longer taking her Linzess as it does not help She has also tried taking Miralax and several other OTC stool softeners in the past with very little relief She denies any acute urinary symptoms She had her annual mammogram last done in December 2024 and has no follow up labs done recently [facility] Medical History (Updated 07/02/25 @ 16:58 by Grayson Martinez MD) Overweight (BMI 25.0-29.9) CARLOS III (cervical intraepithelial neoplasia III) Obesity (BMI 30-39.9) Pure hypercholesterolemia Vitamin D deficiency Migraine Asthma Surgical History H/O LEEP History of tonsillectomy and adenoidectomy Family History Father Hypertension Asthma Mother Hypertension Maternal Grandmother No problems noted. 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 1. Little interest or pleasure in doing things: not at all 2. Feeling down, depressed, or hopeless: not at all 3. Trouble falling or staying asleep, or sleeping too much: not at all 4. Feeling tired or having little energy: not at all 5. Poor appetite or overeating: not at all 6. Feeling bad about yourself - or that you are a failure or have let yourself or your family down: not at all 7. Trouble concentrating on things, such as reading the newspaper or watching television: not at all 8. Moving or speaking so slowly that other people could have noticed. Or the opposite - being so fidgety or restless that you have been moving around a lot more than usual: not at all 9. Thoughts that you would be better off or of hurting yourself in some way: not at all Total score: 0 Depression Screening Interpretation: Negative Depression Screening Done: Yes 57618 - PHQ-9 Billing: Yes Source: Developed by Drs. Randolph Gamino, Lisy Banks, Kenny Palacio and colleagues, with an educational milady from [employer]. Thrive Questionnaire Date Thrive assessed: 07/02/25 I am a: Patient What is your living situation today?: I have a steady place to live Within the past 12 months, did the food you bought not last and you didn't have the money to get more?: Never true Within the past 12 months, did you worry whether your food would run out before you got money to buy more?: Never true Do you have trouble paying for medicines?: No Do you have trouble getting transportation to medical appointments?: No Do you have trouble paying your heating and electricity bill?: No Do you have trouble taking care of your child, family member or friend?: No Do you have trouble with day-to-day activities such as bathing, preparing meals, shopping, managing finances, etc.?: No Are you currently unemployed and looking for a job?: No Are you interested in more education?: No Please select the resources that you would like help with: None Currently or been in a relationship where the following occur: No concerns reported THRIVE Score: 0 AUDIT C Alcohol Use Questionnaire (AUDIT-C) 1. How often do you have a drink containing alcohol?: 2-4 times a month 2. How many drinks containing alcohol do you have on a typical day when you are drinking?: 1 or 2 3. How often do you have six or more drinks on one occasion?: Less than monthly Total Score: 3 Score Reviewed/Action Taken: Yes TURNER-7 AMB Questionnaire TURNER-7 Date TURNER - 7 assessed: 07/02/25 Feeling nervous, anxious, or on edge: 0 = Not at all Not being able to stop or control worryin = Several days Worrying too much about different things: 1 = Several days Trouble relaxin = More than half the days Being so restless that it is hard to sit still: 0 = Not at all Becoming easily annoyed or irritable: 1 = Several days Feeling afraid as if something awful might happen: 0 = Not at all Total TURNER-7 score (0-4 normal; 5-9 mild; 10-14 moderate; 15-21 severe): 5 Source: Developed by Drs. Randolph Gamino, Lisy Banks, Kenny Palacio and colleagues, with an educational milady from [employer]. Review of Systems Const Denies chills, Reports difficulty sleeping (has difficulty staying asleep through the night often), Reports fatigue, Denies fever(s), Denies headache(s), Denies malaise and Reports weight gain Eyes Denies blurry vision, Denies change in vision, Denies irritation and Denies itchy eyes ENT Denies dysphagia, Denies dizziness, Denies otalgia, Denies headache(s), Denies nasal congestion, Denies neck pain, Denies odynophagia, Denies sinus pain and Denies sore throat Card Denies chest pain, Denies rapid heart rate, Denies irregular heart rhythm, Denies palpitations and Denies dyspnea Resp Denies chest congestion, Denies cough, Denies dyspnea and Denies wheezing GI Denies abdominal pain, Reports bloating, Reports constipation (chronic), Denies dysphagia, Denies heartburn, Denies diarrhea, Denies nausea, Denies odynophagia and Denies vomiting Details: (+) irregular menstrual periods Denies hematuria, Denies difficulty voiding, Denies dysuria, Denies urinary incontinence and Denies urinary urgency Musc Denies back pain, Denies arthralgias, Denies joint swelling, Denies muscle weakness and Denies neck pain Skin/Breast Reports breast pain (occasionally - attributes this to premopausal symptoms), Denies breast mass, Denies change in pigmentation, Denies lesions, Denies rash and Denies unusual bruising Neuro Denies dizziness, Denies headache(s) and Denies paresthesias Psych Denies anxiety, Denies depression, Reports irritability and Reports mood swings Endo Details: (+) recurrent hot flashes Reports fatigue and Denies palpitations Fredi/Lymph Denies easy bruising Aller/Immun Denies itchy eyes and Denies wheezing Physical exam (Primary Care) Vital Signs: Last Vital Signs Pulse 81 07/02/25 16:18 BP 122/80 07/02/25 16:18 Pulse Ox 95 07/02/25 16:18 Oxygen Delivery Method Room Air 07/02/25 16:18 BMI result Body Mass Index 32.2 Tobacco/Smoking Status: Tobacco use Status Tobacco use date assessed 07/02/25 07/02/25 16:25 Patient Tobacco Use Status Former Tobacco user 07/02/25 16:25 Tobacco use type Cigarette 07/02/25 16:25 e-Cigarette/Vaping Use Never Used 07/02/25 16:25 PHQ-9: PHQ-9 Score PHQ-9: Total score 0 07/03/25 09:11 Depression Screening Interpretation: Negative Thrive Assessment: Date of Thrive Assessment Date Thrive assessed 07/02/25 07/02/25 16:25 Currently or been in a relationship where the following occur: No concerns reported Const General: no acute distress, alert and awake Orientation/consciousness: patient oriented x3 HENMT Head: Yes normocephalic and Yes atraumatic Ears: external ears normal, TM's normal bilaterally and EAC's normal General nose exam: No nasal discharge present Face and sinus: Yes normal facial exam and Yes sinuses nontender Teeth and gingiva: dentition normal Throat: Yes posterior oropharynx normal and Yes tonsils normal (no TP congestion) Eyes Eyelids: Yes eyelids normal Conjunctivae: conjunctivae normal Pupils: Equal, round and reactive pupils present EOM: EOMs intact bilaterally Neck Neck: Yes no lymphadenopathy and Yes supple Thyroid: Thyroid normal Resp Auscultation: clear to auscultation bilaterally, no rales and no wheezes Cardio Rate: regular rate Rhythm: regular rhythm Heart sounds: no murmurs GI Palpation (GI): Soft to palpation, nontender and No hepatosplenomegaly present Auscultation: normal bowel sounds General: Yes no CVA tenderness Back/Spine/Pelvis Back: no CVA tenderness Thoracic/Lumbar Spine: thoracic and lumbar spine normal to inspection Skin Lesions: no lesions Rashes: no rashes Neuro General: patient oriented x3, moves all extremities, no focal motor deficits and CN's II-XI intact bilaterally Cranial nerves: Yes Equal, round and reactive pupils present Cognition (Neuro): normal cognition Gait exam (Neuro): Normal gait present Extrem General: Yes no clubbing, cyanosis or edema Coding Level of Care Code Est Pt Prev Care 40-64y(50755) Diagnoses Annual physical exam Z00.00 Abnormal uterine bleeding (AUB) N93.9 ASCUS with positive high risk HPV cervical R87.610; R87.810 Pure hypercholesterolemia E78.00 Vitamin D deficiency E55.9 Mild intermittent asthma without complication J45.20 Asthma complication type: uncomplicated Asthma persistence: intermittent Asthma severity: mild Migraine without status migrainosus, not intractable, unspecified migraine type G43.909 Intractability: not intractable Migraine type: unspecified Status migrainosus presence: without status migrainosus Chronic constipation K59.09 Seasonal allergies J30.2 Obesity (BMI 30-39.9) E66.9 Additional Codes PHQ-9 - 06132 - PHQ-9 Billing: Yes ([id number]) Assessment & Plan Assessment & Plan (1) Annual physical exam: Code(s): Z00.00 - Encounter for general adult medical examination without abnormal findings Category: Medical Plan: Check labs She is currently up-to-date with her yearly gynecology exam and pap smear as well as with her annual mammogram She has no other cancer screenings due at this time (2) Abnormal uterine bleeding (AUB): Comment: With post coital bleeding On Mirena IUD Code(s): N93.9 - Abnormal uterine and vaginal bleeding, unspecified Category: Medical Plan: She is currently being evaluated and worked up for this by [facility] [place]ne[facility] but she reports feeling frustrated by the perceived lack of responsiveness from her feather shaper's practice for the past year - states that she's had an endometrial biopsy done earlier this year that came back inconclusive and she was recommended to undergo endometrial sampling via hysteroscopy but she ended up missing her appointment and has not been able to get this rescheduled yet since States that she also wanted to discuss getting a tubal ligation done but felt that her feather shaper just keeps brushing her off regarding this and has not really explained why Have advised patient that she should probably schedule a follow-up appointment with the feather shaper NAVEED and make sure that he is aware of what her requests and wishes are and to be sure the they are understood Have advised patient that it is likely that her feather shaper has more other immediate concerns to consider that are more urgent than her tubal ligation request (3) ASCUS with positive high risk HPV cervical: Code(s): R87.610 - Atypical squamous cells of undetermined significance on cytologic smear of cervix (ASC-US); R87.810 - Cervical high risk human papillomavirus (HPV) DNA test positive Category: Medical Plan: Follow-up with [facility] [place] Gynecology as scheduled (4) Pure hypercholesterolemia: Code(s): E78.00 - Pure hypercholesterolemia, unspecified Category: Medical Plan: Reinforced low-cholesterol diet Will have patient recheck her labs and fasting lipids NAVEED for follow-up, especially with her recent significant weight gain (5) Vitamin D deficiency: Code(s): E55.9 - Vitamin D deficiency, unspecified Category: Medical Plan: She used to take vitamin-D supplements but has not done so in a while now Will recheck her vitamin-D level for follow-up (6) Asthma: Code(s): J45.909 - Unspecified asthma, uncomplicated Category: Medical Qualifiers: Asthma complication type: uncomplicated Asthma persistence: intermittent Asthma severity: mild Qualified Code(s): J45.20 - Mild intermittent asthma, uncomplicated Plan: Appears controlled Continue Albuterol HFA 1 to 2 inhalations Q 6 hours PRN (7) Migraine: Code(s): G43.909 - Migraine, unspecified, not intractable, without status migrainosus Category: Medical Qualifiers: Intractability: not intractable Migraine type: unspecified Status migrainosus presence: without status migrainosus Qualified Code(s): G43.909 - Migraine, unspecified, not intractable, without status migrainosus Plan: Patient states that her headaches have been stable/well-controlled lately Reinforced avoidance of any potential migraine triggers (8) Chronic constipation: Code(s): K59.09 - Other constipation Category: Medical Plan: Reinforced again increased oral fluids and dietary fiber intake Patient appears to have some component of IBS that is complicating her chronic constipation issues She has tried and failed Miralax, Linzess, Amitiza and several other OTC stool softeners/laxatives in the past Will start her this time on a trial of Trulance 3 mg QD although this Rx may require a prior authorization before her insurance will approve this (9) Seasonal allergies: Code(s): J30.2 - Other seasonal allergic rhinitis Category: Medical Plan: Continue Cetirizine 10 mg QD PRN (10) Obesity (BMI 30-39.9): Code(s): E66.9 - Obesity, unspecified Category: Medical Plan: Reinforced diet/exercise as tolerated/lose weight - patient has gained at least 30 lbs in the past year alone, which she is attributing to her current job which is mostly sedentary Plan Follow up in 6 months Orders: Orders Comprehensive [place]. Panel Fast 07/02/25 E78.00 - Pure hypercholesterolemia, unspecified, Z00.00 - Encounter for general adult medical examination without abnormal findings UA CC w/rflx Micro + Cult 07/02/25 R30.0 - Dysuria, Z00.00 - Encounter for general adult medical examination without abnormal findings Vitamin D 25-OH Total 07/02/25 E55.9 - Vitamin D deficiency, unspecified, Z00.00 - Encounter for general adult medical examination without abnormal findings Vitamin B12 and Folate 07/02/25 E53.8 - Deficiency of other specified B group vitamins, Z00.00 - Encounter for general adult medical examination without abnormal findings Complete Blood Count Auto Diff 07/02/25 D64.9 - Anemia, unspecified, Z00.00 - Encounter for general adult medical examination without abnormal findings Lipid Panel 07/02/25 E78.00 - Pure hypercholesterolemia, unspecified, Z00.00 - Encounter for general adult medical examination without abnormal findings TSH reflex Free T4 07/02/25 E78.00 - Pure hypercholesterolemia, unspecified, Z00.00 - Encounter for general adult medical examination without abnormal findings Medications: New plecanatide (Trulance) 3 mg PO DAILY 30 tabs 3RF 30 days K59.09 - Other constipation
== END 2025-07-02 17:05 | disposition home or self-care (01) ==
LOC: HO.HMCH 16:12
PROVIDERS: PCP Internal Medicine; Visit Provider Internal Medicine
DX: Z00.00 Encounter for general adult medical examination without abnormal findings (principal); N93.9 Abnormal uterine and vaginal bleeding, unspecified; E66.9 Obesity, unspecified; Z68.32 Body mass index [BMI] 32.0-32.9, adult; R87.610 Atypical squamous cells of undetermined significance on cytologic smear of cervix (ASC-US); R87.810 Cervical high risk human papillomavirus (HPV) DNA test positive; E78.00 Pure hypercholesterolemia, unspecified; E55.9 Vitamin D deficiency, unspecified; J45.20 Mild intermittent asthma, uncomplicated; G43.909 Migraine, unspecified, not intractable, without status migrainosus; K59.09 Other constipation; J30.2 Other seasonal allergic rhinitis

== ENCOUNTER → 2025-07-02 16:11 | Outpatient (BNVA) | payer BC, SELFPAY | PROVIDERS: PCP Internal Medicine; Visit Provider Internal Medicine | DX: Z00.00 Encounter for general adult medical examination without abnormal findings (principal); N93.9 Abnormal uterine and vaginal bleeding, unspecified; R87.610 Atypical squamous cells of undetermined significance on cytologic smear of cervix (ASC-US); R87.810 Cervical high risk human papillomavirus (HPV) DNA test positive; E78.00 Pure hypercholesterolemia, unspecified; E55.9 Vitamin D deficiency, unspecified; J45.20 Mild intermittent asthma, uncomplicated; G43.909 Migraine, unspecified, not intractable, without status migrainosus; K59.09 Other constipation; J30.2 Other seasonal allergic rhinitis; E66.9 Obesity, unspecified; Z68.32 Body mass index [BMI] 32.0-32.9, adult | CPT/HCPCS: 96127 ==